=== PATIENT | male | born 1935 | race Caucasian/White ===

== ENCOUNTER → 2016-12-22 | Outpatient (CLI) | payer BC ==
[~2016-12-22] MED LIST: ASPEC81 PO; ATOR-24 PO; CHOLCAP5 PO; LEVO25TA PO; METO-478 PO; NTRGSL/4 UT; PRT/20 PO; XNX25 PO
[2016-12-22 12:06] LABS: HEMATOCRIT 37.5 % (42-52); MEAN CELL VOLUME 86.4 fL (80-100); MEAN CORPUSCULAR HEMOGLOBIN 29.7 pg (25-34); MEAN CORPUSCULAR HGB CONC 34.4 g/dl (32-36); MEAN PLATELET VOLUME 11.2 fL (7.4-10.4); PLATELET COUNT 178 K/uL (130-400); RED BLOOD COUNT 4.34 M/uL (4.7-6.1); WHITE BLOOD COUNT 7.76 K/uL (4.8-10.8)
[2016-12-22 14:28] LABS: ALT/SGPT 29 U/L (12-78); AST/SGOT 29 U/L (15-37); BLOOD UREA NITROGEN 20 mg/dl (7-18); BUN/CREATININE RATIO 14.2 (10-20); CALCIUM 8.8 mg/dl (8.5-10.1); CARBON DIOXIDE 29 mmol/L (21-32); CHLORIDE 102 mmol/L (98-107); GLUCOSE 87 mg/dl (70-99); HDL CHOLESTEROL 63 mg/dl; POTASSIUM 4.4 mmol/L (3.5-5.1); SODIUM 137 mmol/L (136-145)
[2016-12-22 14:39] LABS: ALB/GLOB RATIO 1.3 (0.9-2); ALKALINE PHOSPHATASE 49 U/L (45-117); CHOLESTEROL 195 mg/dl (0-200); CHOLESTEROL/HDL RATIO 3.1; LDL CHOLESTEROL CALCULATED 111 mg/dl; TRIGLYCERIDES 105 mg/dl (0-150); VERY LOW DENSITY LIPOPROT CALC 21 mg/dl
== END | disposition home or self-care (01) ==
LOC: C.LAB 10:54
PROVIDERS: ATTEND Physician Assistant
DX: R42 Dizziness and giddiness (principal); R53.82 Chronic fatigue, unspecified; E78.5 Hyperlipidemia, unspecified

== ENCOUNTER → 2017-12-24 | Outpatient (CLI) | payer BC ==
[2017-12-24 12:16] LABS: BASO % 0.5 %; BASO ABS # 0.03 K/uL (0-0.2); EOS % 8.3 %; EOS ABS # 0.54 K/uL (0-0.5); HEMATOCRIT 38.5 % (42-52); HEMOGLOBIN 13.1 g/dL (14.0-18.0); IG# 0.01 K/uL (0.00-0.02); LYMPH % 19.4 %; LYMPH ABS # 1.27 K/uL (1.2-3.4); MEAN CELL VOLUME 86.5 fL (80-100); MEAN CORPUSCULAR HEMOGLOBIN 29.4 pg (25-34); MEAN PLATELET VOLUME 11.3 fL (7.4-10.4); MONO % 6.1 %; NEUT % 65.5 %; NEUT ABS # 4.29 K/uL (1.4-6.5); PLATELET COUNT 198 K/uL (130-400); RED CELL DISTRIBUTION WIDTH SD 44.1 fL (36.4-46.3); WHITE BLOOD COUNT 6.54 K/uL (4.8-10.8)
[2017-12-24 12:48] LABS: ALBUMIN 3.8 gm/dl (3.4-5.0); ALT/SGPT 27 U/L (12-78); AST/SGOT 30 U/L (15-37); BLOOD UREA NITROGEN 22 mg/dl (7-18); CALCIUM 8.9 mg/dl (8.5-10.1); CARBON DIOXIDE 29 mmol/L (21-32); CREATININE 1.41 mg/dl (0.60-1.40); GLUCOSE 89 mg/dl (70-99); POTASSIUM 4.3 mmol/L (3.5-5.1); SODIUM 135 mmol/L (136-145)
[2017-12-24 12:59] LABS: ALKALINE PHOSPHATASE 45 U/L (45-117); CHOLESTEROL 199 mg/dl (0-200); LDL CHOLESTEROL CALCULATED 119 mg/dl; TOTAL PROTEIN 6.8 gm/dl (6.4-8.2)
== END | disposition home or self-care (01) ==
LOC: C.LAB 10:23
PROVIDERS: ATTEND Family Medicine
DX: I25.10 Atherosclerotic heart disease of native coronary artery without angina pectoris (principal); F41.9 Anxiety disorder, unspecified

== ENCOUNTER 2022-06-27 14:10 | Inpatient (IN) ==
[2022-06-27] MEDS ORDERED: SODIUM CHLORIDE 0.9% 1000ML 500 ML IV ONE ×2 (14:36→15:57)
[2022-06-27] MEDS ORDERED: ONDANSETRON INJ 2 MG/ML 2 ML VIAL IV STA (14:36)
[2022-06-27 14:44] LABS: Basophils # (auto) 0.01 K/uL (0-0.2); Basophils % (auto) 0.1 %; Eosinophils # (auto) 0.04 K/uL (0-0.50); Eosinophils % (auto) 0.4 %; Hematocrit (blood only) 32.8 % (40.1-51.0); Hemoglobin 11.9 g/dl (14.0-18.0); Immature Granulocytes # (auto) 0.06 K/uL (0.00-0.02); Immature Granulocytes % (auto) 0.6 %; Lymphocytes # (auto) 0.67 K/uL (1.2-3.4); Lymphocytes % (auto) 7.2 %; Mean Corpuscular Hemoglobin 29.5 pg (25.0-34.0); Mean Corpuscular Hgb Conc 36.3 g/dL (32.0-36.0); Mean Corpuscular Volume 81.4 fL (80.0-100.0); Mean Platelet Volume 9.9 fL (9.4-12.4); Monocytes # (auto) 0.49 K/uL (0.24-0.82); Monocytes % (auto) 5.3 %; Neutrophils # (auto) 7.99 K/uL (1.4-6.5); Neutrophils % (auto) 86.4 %; Platelet Count 205 K/uL (130-400); RDW Coefficient of Variation 12.8 % (11.5-14.5); RDW Standard Deviation 38.2 fL (36.4-46.3); Red Blood Count 4.03 M/uL (4.63-6.08); White Blood Count 9.26 K/ul (4.8-10.8)
[2022-06-27] MEDS ORDERED: ALBUT/IPRATROP 3MG/0.5MG NEB 3 ML VIAL NEB STA (14:50)
--- NOTE | 2022-06-27 14:59 | XRay Report ---
TWO VIEW CHEST CLINICAL HISTORY: Illness. Cough. Vomiting. FINDINGS: PA and lateral chest radiographs are compared to study dated 07/10/2015 and correlated with chest CT dated 07/28/2013. The heart is top normal for projection noting atherosclerotic calcificatio n of the thoracic aorta. Chronic interstitial thickening is similar to previous. There is bibasilar s carring/atelectasis. No airspace consolidation or pleural effusion is identified. There is no pneumot horax. The skeletal structures are osteopenic. The bony thorax appears intact. Spondylotic change is noted in the thoracic spine. IMPRESSION: No active disease in the chest. ACT 112: Negative or not required by law. Electronically signed by: Bandar Boss M.D. 06/27/2022 2:58 PM
--- NOTE | 2022-06-27 15:00 | Emergency Department Note ---
Impression & Plan Weakness, Cough, Acute dehydration, Acute hyponatremia ED Provider Note NAME: ELIJAH LOMAX AGE: 86 SEX: M : 1935 ARRIVES VIA: Walk-In INFORMANT: [Patient][family] ED PROVIDER(S): [Bandar Arevalo MD] CHIEF COMPLAINT: Dehydration HISTORY OF PRESENT ILLNESS: The patient is an 86-year-old male who presents with 5 days of illness. He has had a decreased appetite, some cough and congestion. He has been fatigued. There was some mild confusion at times. Yesterday, he began vomiting. He feels thirsty and tired. He did see his doctors office, he was referred to the ER for evaluation as there were concerns for dehydration. Patient states that he is coughing to the point where he cannot sleep. He denies any fever, no diarrhea, no abdominal pain. He has not had any sick contacts. No underlying lung disease diagnosed. REVIEW OF SYSTEMS: See HPI for pertinent positives and negatives. A total of ten systems were reviewed and were otherwise negative. PMHx/PSHx: See Below SOCIAL HISTORY: See Below. PHYSICAL EXAM: GENERAL: Patient is in no acute distress. HEENT: No acute trauma, normocephalic atraumatic, mucous membranes very dry, no nasal congestion, no scleral icterus. NECK: No stridor, no adenopathy, no meningismus, trachea is midline. LUNGS: A few scattered wheezes heard, breath sounds equal, no respiratory distress. HEART: Without murmurs gallops or rubs, regular rate and rhythm. ABDOMEN: Soft, nontender, bowel sounds positive, no peritonitis. EXTREMITIES: No cyanosis or edema, full range of motion of all the joints without pain or difficulty, no signs for acute trauma. NEUROLOGIC: Oriented x 3, no acute motor or sensory deficits, no focal weakness. SKIN: No rash, no jaundice, no diaphoresis. DIFFERENTIAL DIAGNOSIS: Infection, dehydration, COVID-19, influenza, bronchitis, pneumonia, metabolic a bnormality, hypo/hyperglycemia, electrolyte disturbance, anemia, hypoxia, cardiac sources, intracerebral event, toxicologic issues, stroke, TIA, as well as other pathologies. EMERGENCY DEPARTMENT COURSE/PROCEDURES: ECG: Indication was weakness. The ECG shows a sinus rhythm with a first- degree AV block. The rate is 69. There is a right bundle branch block. There is no ST elevation, no PVCs. Compared to an ECG from 10 July 2015, the right bundle branch block is now present. Continuous Cardiac Monitoring: An order was placed for continuous cardiac monitoring. The monitor shows a rate of 70 with sinus rhythm with a first-degree block. MEDICAL DECISION MAKING: There is no leukocytosis. There is a mild anemia noted, this has been documented before. There was a normal platelet count. Sodium was quite low at 117. Chloride was low. No renal failure. Some subtle liver enzyme elevations were seen. ECG showed a sinus rhythm with a first-degree AV block, no acute ischemia. Cardiac enzyme testing x1 was not consistent with acute cardiac injury. Urinalysis showed ketones consistent with dehydration, no infection. COVID, influenza and RSV testing returned negative. Chest x-ray did not show heart failure or pneumonia. On exam, the patient appeared dehydrated. No hypoxia. Patient received IV saline, 1 L. He was given a DuoNeb. He was given IV Zofran. The patient is in need of a hospital stay. He has a cough and likely some sort of viral respiratory process. He is dehydrated with hyponatremia. I did speak with the patient and case management, the on-call hospitalist was consulted. Past Med/Surg History Medical History Acute kidney injury CAD (coronary artery disease) CKD (chronic kidney disease), stage III HLD (hyperlipidemia) Hypothyroidism Vitamin D deficiency Surgical History (Updated 06/27/22 @ 17:22 by Madisyn Cuellar PA-C) Hx of arthroscopic knee surgery Hx of colonoscopy 11/23/2014 Hx of tonsillectomy Family History (Updated 06/27/22 @ 17:23 by Madisyn Cuellar PA-C) Father , At age 63 No problems noted. Mother , At age 84 No problems noted. Brother No problems noted. Brother No problems noted. 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 Beliefs That Will Affect Care: None Current Living Situation: Spouse Other Information That Helps Us Care for You: No Feels Safe at Home: Yes Safety Concerns: Feels Safe At This Time Assistive Devices: Cane and Glasses Allergies Allergies Allergy/AdvReac Type Severity Reaction Status Date / Time Sulfa (Sulfonamide Allergy Unknown Unknown Verified 06/27/22 16:19 Antibiotics) Home Meds Home Medications Medication Instructions Recorded Confirmed aspirin 81 mg tablet,delayed 81 mg PO DAILY 06/27/22 06/27/22 release clotrimazole-betamethasone 1 1 applic topical BID PRN SORE ON 06/27/22 06/27/22 %-0.05 % topical cream TOE NEEDED ezetimibe 10 mg tablet (Zetia) 10 mg PO DAILY 06/27/22 06/27/22 levothyroxine 50 mcg tablet 50 mcg PO DAILYBB 06/27/22 06/27/22 nitroglycerin 0.4 mg sublingual 0.4 mg sublingual DIRECTED PRN 06/27/2206/08 tablet (Nitrostat) Chest Pain pantoprazole 20 mg tablet,delayed 20 mg PO DAILY 06/27/22 06/27/22 release polyethylene glycol 3350 17 17 g PO DAILY PRN Constipation 06/27/22 06/27/22 gram/dose oral powder (Miralax) rosuvastatin 5 mg tablet 5 mg PO 3XWK 06/27/22 06/27/22 Results & Data (ED) Vital Signs Vital Signs - 24 hr 06/27/22 14:19 06/27/22 16:00 Temperature 36.4 C L Temperature Source Temporal Artery Scan Pulse Rate 70 Pulse Rate [Radial] 85 Pulse Rhythm [Radial] Regular Respiratory Rate 20 18 Respiratory Effort / Characteristics Non-Labored Spontaneous Non-Labored Respiratory Depth Normal Normal Respiratory Pattern Regular Regular Blood Pressure 150/70 H Blood Pressure [Right Arm] 137/74 Blood Pressure Mean 96 Blood Pressure Mean [Right Arm] 95 Pulse Oximetry 95 93 Oxygen Delivery Method Room Air Room Air Sepsis Recent Fever Within 48 Hours No Sepsis New/Unexplained Change in Mental Status No Sepsis Action Taken by Nursing No Action Required Home Medications Current Medication List: was personally reviewed by me Laboratory Data Attestation: I reviewed the patient's lab results. Result diagrams: 06/27/22 14:32 06/27/22 19:39 Lab Results 06/27/22 06/27/22 06/27/22 Range/Units 14:32 14:32 14:32 WBC 9.26 (4.8-10.8) K/ul RBC 4.03 L (4.63-6.08) M/uL Hgb 11.9 L (14.0-18.0) g/dl Hct 32.8 L (40.1-51.0) % MCV 81.4 (80.0-100.0) fL MCH 29.5 (25.0-34.0) pg MCHC 36.3 H (32.0-36.0) g/dL RDW Std Deviation 38.2 (36.4-46.3) fL RDW Coeff of Dc 12.8 (11.5-14.5) % Plt Count 205 (130-400) K/uL MPV 9.9 (9.4-12.4) fL Immature Gran % (Auto) 0.6 % Neut % (Auto) 86.4 % Lymph % (Auto) 7.2 % Menard % (Auto) 5.3 % Eos % (Auto) 0.4 % Baso % (Auto) 0.1 % Neut # (Auto) 7.99 H (1.4-6.5) K/uL Lymph # (Auto) 0.67 L (1.2-3.4) K/uL Menard # (Auto) 0.49 (0.24-0.82) K/uL Eos # (Auto) 0.04 (0-0.50) K/uL Baso # (Auto) 0.01 (0-0.2) K/uL Immature Gran # (Auto) 0.06 H (0.00-0.02) K/uL Sodium 117 L* (136-145) mmol/L Potassium 4.2 (3.5-5.1) mmol/L Chloride 83 L (98-107) mmol/L Carbon Dioxide 24 (21-32) mmol/L Anion Gap 10 (3-11) BUN 16 (6-23) mg/dl Creatinine 0.89 (0.6-1.4) mg/dl Est Cr Clr Drug Dosing 62.9 ml/min Est GFR ( Amer) 91.0 ml/min Est GFR (Non-Af Amer) 78.5 ml/min BUN/Creatinine Ratio 18.0 (10-20) Glucose 113 H (70-99(Fasting)) mg/dl Osmolality 247 L (280-300) mOsm/kg Calcium 8.8 (8.5-10.1) mg/dl Magnesium 1.9 (1.7-2.4) mg/dl Total Bilirubin 1.1 H (0.2-1.0) mg/dl AST 66 H (13-39) U/L ALT 34 (7-52) U/L Alkaline Phosphatase 49 (34-104) U/L Troponin I High Sens 8.4 (0-20) pg/ml Total Protein 6.9 (6.0-8.3) gm/dl Albumin 4.2 (3.4-5.0) gm/dl Globulin 2.7 (2.5-4.0) gm/dl Albumin/Globulin Ratio 1.6 (0.9-2) Urine Color Urine Appearance (Clear) Urine pH (4.5-7.5) Ur Specific [place] (1.000-1.030) Urine Protein (Negative) Urine Glucose (UA) (Negative) Urine Ketones (Negative) Urine Blood (Negative) Urine Nitrite (Negative) Urine Bilirubin (Negative) Urine Urobilinogen (Negative) Ur Leukocyte Esterase (Negative) Urine WBC (Auto) (0-5) /hpf Urine RBC (Auto) (0-4) /hpf U Hyaline Cast (Auto) (0-5) /lpf U Epithel Cells (Auto) (0-5) /lpf Urine Bacteria (Auto) (Negative) Urine Osmolality (500-800) mOsm/kg Ur Random Creatinine mg/dl Ur Random Sodium mmol/L SARS-CoV-2 (PCR) (Negative) Influenza Type A (PCR) (Neg) Influenza Type B (PCR) (Neg) RSV (RT-PCR) (Neg) 06/27/22 06/27/22 06/27/22 Range/Units 15:00 15:45 15:54 WBC (4.8-10.8) K/ul RBC (4.63-6.08) M/uL Hgb (14.0-18.0) g/dl Hct (40.1-51.0) % MCV (80.0-100.0) fL MCH (25.0-34.0) pg MCHC (32.0-36.0) g/dL RDW Std Deviation (36.4-46.3) fL RDW Coeff of Dc (11.5-14.5) % Plt Count (130-400) K/uL MPV (9.4-12.4) fL Immature Gran % (Auto) % Neut % (Auto) % Lymph % (Auto) % Menard % (Auto) % Eos % (Auto) % Baso % (Auto) % Neut # (Auto) (1.4-6.5) K/uL Lymph # (Auto) (1.2-3.4) K/uL Menard # (Auto) (0.24-0.82) K/uL Eos # (Auto) (0-0.50) K/uL Baso # (Auto) (0-0.2) K/uL Immature Gran # (Auto) (0.00-0.02) K/uL Sodium (136-145) mmol/L Potassium (3.5-5.1) mmol/L Chloride (98-107) mmol/L Carbon Dioxide (21-32) mmol/L Anion Gap (3-11) BUN (6-23) mg/dl Creatinine (0.6-1.4) mg/dl Est Cr Clr Drug Dosing ml/min Est GFR ( Amer) ml/min Est GFR (Non-Af Amer) ml/min BUN/Creatinine Ratio (10-20) Glucose (70-99(Fasting)) mg/dl Osmolality (280-300) mOsm/kg Calcium (8.5-10.1) mg/dl Magnesium (1.7-2.4) mg/dl Total Bilirubin (0.2-1.0) mg/dl AST (13-39) U/L ALT (7-52) U/L Alkaline Phosphatase (34-104) U/L Troponin I High Sens (0-20) pg/ml Total Protein (6.0-8.3) gm/dl Albumin (3.4-5.0) gm/dl Globulin (2.5-4.0) gm/dl Albumin/Globulin Ratio (0.9-2) Urine Color Yellow Urine Appearance Clear (Clear) Urine pH 6.5 (4.5-7.5) Ur Specific [place] 1.021 (1.000-1.030) Urine Protein 1+ H (Negative) Urine Glucose (UA) Negative (Negative) Urine Ketones 2+ H (Negative) Urine Blood Negative (Negative) Urine Nitrite Negative (Negative) Urine Bilirubin Negative (Negative) Urine Urobilinogen Negative (Negative) Ur Leukocyte Esterase Negative (Negative) Urine WBC (Auto) 1-5 (0-5) /hpf Urine RBC (Auto) 0-4 (0-4) /hpf U Hyaline Cast (Auto) 0 (0-5) /lpf U Epithel Cells (Auto) 10-20 H (0-5) /lpf Urine Bacteria (Auto) Negative (Negative) Urine Osmolality 1069 H (500-800) mOsm/kg Ur Random Creatinine mg/dl Ur Random Sodium mmol/L SARS-CoV-2 (PCR) NEGATIVE (Negative) Influenza Type A (PCR) Negative (Neg) Influenza Type B (PCR) Negative (Neg) RSV (RT-PCR) Negative (Neg) 06/27/22 06/27/22 Range/Units 15:54 15:54 WBC (4.8-10.8) K/ul RBC (4.63-6.08) M/uL Hgb (14.0-18.0) g/dl Hct (40.1-51.0) % MCV (80.0-100.0) fL MCH (25.0-34.0) pg MCHC (32.0-36.0) g/dL RDW Std Deviation (36.4-46.3) fL RDW Coeff of Dc (11.5-14.5) % Plt Count (130-400) K/uL MPV (9.4-12.4) fL Immature Gran % (Auto) % Neut % (Auto) % Lymph % (Auto) % Menard % (Auto) % Eos % (Auto) % Baso % (Auto) % Neut # (Auto) (1.4-6.5) K/uL Lymph # (Auto) (1.2-3.4) K/uL [place]ard # (Auto) (0.24-0.82) K/uL Eos # (Auto) (0-0.50) K/uL Baso # (Auto) (0-0.2) K/uL Immature Gran # (Auto) (0.00-0.02) K/uL Sodium (136-145) mmol/L Potassium (3.5-5.1) mmol/L Chloride (98-107) mmol/L Carbon Dioxide (21-32) mmol/L Anion Gap (3-11) BUN (6-23) mg/dl Creatinine (0.6-1.4) mg/dl Est Cr Clr Drug Dosing ml/min Est GFR ( Amer) ml/min Est GFR (Non-Af Amer) ml/min BUN/Creatinine Ratio (10-20) Glucose (70-99(Fasting)) mg/dl Osmolality (280-300) mOsm/kg Calcium (8.5-10.1) mg/dl Magnesium (1.7-2.4) mg/dl Total Bilirubin (0.2-1.0) mg/dl AST (13-39) U/L ALT (7-52) U/L Alkaline Phosphatase (34-104) U/L Troponin I High Sens (0-20) pg/ml Total Protein (6.0-8.3) gm/dl Albumin (3.4-5.0) gm/dl Globulin (2.5-4.0) gm/dl Albumin/Globulin Ratio (0.9-2) Urine Color Urine Appearance (Clear) Urine pH (4.5-7.5) Ur Specific [place] (1.000-1.030) Urine Protein (Negative) Urine Glucose (UA) (Negative) Urine Ketones (Negative) Urine Blood (Negative) Urine Nitrite (Negative) Urine Bilirubin (Negative) Urine Urobilinogen (Negative) Ur Leukocyte Esterase (Negative) Urine WBC (Auto) (0-5) /hpf Urine RBC (Auto) (0-4) /hpf U Hyaline Cast (Auto) (0-5) /lpf U Epithel Cells (Auto) (0-5) /lpf Urine Bacteria (Auto) (Negative) Urine Osmolality (500-800) mOsm/kg Ur Random Creatinine 284.5 mg/dl Ur Random Sodium 214 mmol/L SARS-CoV-2 (PCR) (Negative) Influenza Type A (PCR) (Neg) Influenza Type B (PCR) (Neg) RSV (RT-PCR) (Neg) Administered Medications Guaifenesin (Guaifenesin 600 Mg Tabcr) 600 mg PO Q12 CLAUDIA Stop: 07/27/22 20:59 Last Admin: 06/27/22 20:35 Dose: 600 mg Documented By: HFS Sodium Chloride (Hypertonic Saline 3%) 150 mls @ 50 mls/hr IV .Q3H ONE; Protocol Stop: 06/27/22 22:44 Last Admin: 06/27/22 20:36 Dose: 50 mls/hr Documented By: DANIELLE Co-signed By: CF Discontinued Medications Albuterol (Albut/Ipratrop 3mg/0.5mg Neb 3 Ml Vial) 3 ml NEB NOW STA; Protocol Stop: 06/27/22 14:51 Last Admin: 06/27/22 15:06 Dose: 3 ml Documented By: PUMA Guaifenesin/Codeine Phosphate (Guaifenesin/Codeine 200mg/20mg 10ml Udc) 10 ml PO NOW STA Stop: 06/27/22 19:39 Last Admin: 06/27/22 20:37 Dose: 10 ml Documented By: DANIELLE Sodium Chloride (Nss 1000ml) 500 mls @ 999 mls/hr IV .Q31M ONE Stop: 06/27/22 15:06 Last Infusion: 06/27/22 15:49 Dose: 0 mls/hr Documented By: Admin: 06/27/22 15:06 Dose: 999 mls/hr Documented By: PUMA Sodium Chloride (Nss 1000ml) 500 mls @ 999 mls/hr IV .Q31M ONE Stop: 06/27/22 16:27 Last Infusion: 06/27/22 16:51 Dose: 0 mls/hr Documented By: Admin: 06/27/22 16:18 Dose: 999 mls/hr Documented By: PUMA Ondansetron HCl (Ondansetron Inj 2 Mg/Ml 2 Ml Vial) 4 mg IV NOW STA Stop: 06/27/22 14:37 Last Admin: 06/27/22 15:06 Dose: 4 mg Documented By: PUMA Imaging Data Radiologist's Impression: Chest X-Ray 06/27/22 14:25 TWO VIEW CHEST CLINICAL HISTORY: Illness. Cough. Vomiting. FINDINGS: PA and lateral chest radiographs are compared to study dated 07/10/2015 and correlated with chest CT dated 07/28/2013. The heart is top normal for projection noting atherosclerotic calcification of the thoracic aorta. Chronic interstitial thickening is similar to previous. There is bibasilar scarring/atelectasis. No airspace consolidation or pleural effusion is identified. There is no pneumothorax. The skeletal structures are osteopenic. The bony thorax appears intact. Spondylotic change is noted in the thoracic spine. IMPRESSION: No active disease in the chest. ACT 112: Negative or not required by law. Electronically signed by: Bandar Boss M.D. 06/27/2022 2:58 PM Discharge Plan Visit Data Chief Complaint: Dehydration Stated Complaint: REF BY DR, CONGESTION, COUGH, NAUSEA, VOMITING ED Provider: Bandar Arevalo Discharge Problem: Weakness, Cough, Acute dehydration, Acute hyponatremia Patient Disposition: Admitted As Inpatient Condition: Fair Discharge Instructions Interventions: ED Discharge Assessment Last Done: 06/27/22 17:55
[2022-06-27 15:25] LABS: Troponin I High Sensitivity 8.4 pg/ml (0-20)
[2022-06-27 15:55] LABS: Albumin Globulin Ratio 1.6 (0.9-2); Albumin Level 4.2 gm/dl (3.4-5.0); Bilirubin,Total 1.1 mg/dl (0.2-1.0); Calcium 8.8 mg/dl (8.5-10.1); Creatinine Clr Calc Pharmacy 62.9 ml/min; Est GFR (Non-African American) 78.5 ml/min; Globulin 2.7 gm/dl (2.5-4.0); Magnesium 1.9 mg/dl (1.7-2.4); Potassium 4.2 mmol/L (3.5-5.1); Total Protein 6.9 gm/dl (6.0-8.3)
[2022-06-27 16:01] LABS: Influenza A virus by PCR Negative (Neg); Influenza B virus by PCR Negative (Neg); RSV by PCR Negative (Neg); SARS CoV2 RNA(COVID-19) InHosp NEGATIVE (Negative)
[2022-06-27 16:03] LABS: Appearance Urine Clear (Clear); Bacteria Urine Automated Negative (Negative); Bilirubin Urine Negative (Negative); Blood Urine Negative (Negative); Cast Urine Automated 0 /lpf (0-5); Color Urine Yellow; Glucose Urine UA Negative (Negative); Ketones Urine 2+ (Negative); Leukocyte Esterase Urine Negative (Negative); Nitrite Urine Negative (Negative); Protein Urine 1+ (Negative); RBC Urine Automated 0-4 /hpf (0-4); Specific Gravity Urine 1.021 (1.000-1.030); Urobilinogen Urine Negative (Negative); pH Urine 6.5 (4.5-7.5)
--- NOTE | 2022-06-27 16:16 | History & Physical Report ---
Date of Service June 27, 2022 Assessment & Plan (1) Hyponatremia: Plan: - Admit to PCU -Severe hyponatremia, level 117, symptomatic with nausea, vomiting, lethargy, imbalance, generalized malaise -Consult nephrology -discussed with Dr. Isabel -Checking serum osmolality, urine osmolality, urine sodium and creatinine, urine Legionella with recent viral respiratory symptoms -Rechecking BMP now to ensure sodium of 117 is accurate, follow with BMP every 6 hours -Patient has received total NSS 1000 L in the ER, await repeat sodium to determine fluid adjustments, possible that may need 3% saline infusion with severe hyponatremia -Respiratory swab of COVID, influenza, RSV are negative (2) Upper respiratory infection, viral: Plan: - Continue supportive care of cough with Hycodan cough syrup - No leukocytosis - Neg covid, influenza and RSV, checking legionella urine - On room air with O2 sats at 93 %, no supplemental O2 use at baseline - Can consider addition of albuterol nebulizer if develops wheeze however does not have currently - Encourage incentive spirometry, flutter, mucinex (3) CAD (coronary artery disease): Plan: -May continue baby aspirin -Follows with [facility] cardiology, Dr. Bernal as an outpatient: Single-vessel coronary arthrosclerosis of the left circumflex by cardiac cath in 2013 -Hyperlipidemia with a poor statin intolerance on low-dose therapy, can continue - EKG reviewed, RBBB noted, old, no cardiac symptoms today upon admission (4) HLD (hyperlipidemia): Plan: -Continue rosuvastatin 5 mg 3 times/wk (5) CKD (chronic kidney disease), stage III: Plan: -History of such, creatinine function/BUN stable today -Trend as above (6) Hypothyroidism: Plan: -Continue levothyroxine 50 mcg daily -Last TSH was 7.90 Free T4 1.0, PCP last note from 06/12 noted to stay on the same dose and encouraged patient to take daily, question noncompliance? Addressed prior to discharge DVT PPx: - teds, scds CODE: Full code Dispo: From home, likely to remain in the hospital x 1-2 days History of Present Illness Chief Complaint: Dehydration Primary Care Provider: Chester Persaud, DO This is a 86-year-old M with PMHx of CKD stage III, HLD, hypothyroidism, who presented to the ER with acute onset of nausea, vomiting, lethargy, dizziness, fatigue. He was recently being treated as an outpatient for a viral upper respiratory illness for the past 4 to 5 days, with acute worsening of cough, nausea, and vomiting and due to dehydration his and daughter brought him to see PCP today. They referred him to the ER because of dehydration. Recently he had outpatient blood work completed which showed sodium of 134 on 06/09/22. In the ER upon admission sodium level is 117. He has not had any seizures or displaying other neurological manifestations at this time per the daughter, Radha who is present at bedside. Pt reports that in general he does not feel himself, and is tired. Patient also complains of having difficulty walking because he feels unbalanced. Typically he does not have any issues with this nor uses any assistive devices for ambulation. He denies any recent falls. One of his biggest complaints is that he has not had any rest or sleep for the past 2 nights due to cough. When questioned about outpatient Remeron, he tells me he has not needed a sleeping agent in months and is no longer taking this. He reports that his coughing has overall been dry, but today started bringing up mucus after having a nebulizer treatment in the ER. He is able to participate in conversation, oriented x3, and answer all my questions without difficulty. Patient was unable to take his medications this morning due to nausea/vomiting. Respiratory swab was COVID, influenza, RSV negative. Allergies Allergy/AdvReac Type Severity Reaction Status Date / Time Sulfa (Sulfonamide Allergy Unknown Unknown Verified 06/27/22 16:19 Antibiotics) Home Medications Medication Instructions Recorded Confirmed Type aspirin 81 mg tablet,delayed 81 mg PO DAILY 06/27/22 06/27/22 History release clotrimazole-betamethasone 1 1 applic topical BID PRN SORE ON 06/27/22 06/27/22 History %-0.05 % topical cream TOE NEEDED ezetimibe 10 mg tablet (Zetia) 10 mg PO DAILY 06/27/22 06/27/22 History levothyroxine 50 mcg tablet 50 mcg PO DAILYBB 06/27/22 06/27/22 History nitroglycerin 0.4 mg sublingual 0.4 mg sublingual DIRECTED PRN 06/27/22 06/27/22 History tablet (Nitrostat) Chest Pain pantoprazole 20 mg tablet,delayed 20 mg PO DAILY 06/27/22 06/27/22 History release polyethylene glycol 3350 17 17 g PO DAILY PRN Constipation 06/27/22 06/27/22 History gram/dose oral powder (Miralax) rosuvastatin 5 mg tablet 5 mg PO 3XWK 06/27/22 06/27/22 History Past Med/Surg History Medical History (Updated 06/27/22 @ 17:39 by Madisyn Cuellar PA-C) Acute kidney injury CAD (coronary artery disease) CKD (chronic kidney disease), stage III HLD (hyperlipidemia) Hypothyroidism Vitamin D deficiency Surgical History (Updated 06/27/22 @ 17:22 by Madisyn Cuellar PA-C) Hx of arthroscopic knee surgery Hx of colonoscopy 11/23/2014 Hx of tonsillectomy Family History (Updated 06/27/22 @ 17:23 by Madisyn Cuellar PA-C) Father , At age 63 No problems noted. Mother , At age 84 No problems noted. Brother No problems noted. Brother No problems noted. Social History Smoking Status: Never smoker Hx Alcohol Use: Yes Alcohol type: beer Hx Substance Use: No Preferred Language: Hungarian Communication Ability: Effective Manpower Development Advisor Required: No Beliefs That Will Affect Care: None Current Living Situation: Spouse Other Information That Helps Us Care for You: No Feels Safe at Home: Yes Safety Concerns: Feels Safe At This Time Assistive Devices: Cane and Glasses Review of Systems Review of Systems: Constitutional: No fever, sweats or chills, + fatigue, + lethargy Eyes: No diplopia, no worsening or blurred vision ENT: normal hearing, no trouble swallowing Respiratory: + Recent dry cough, today with new sputum production, no blood, no dyspnea at rest or on exertion Cardiovascular: No chest pain, tightness or palpitations Abdomen: No pain, nausea, vomiting, diarrhea or constipation Musculoskeletal: No joint pain, calf pain, swelling Neurologic: + generalized weakness and balance problems, no numbness and tingling Psychiatric: No anxiety or depression Skin: No rash or itch Physical Exam Physical Exam: General: awake, alert, no apparent distress, + appears fatigued Head: Normocephalic, atraumatic ENT: PERRL, EOMI, no pharyngeal exudate,+ mucous membranes are dry Chest: On room air, + cough which clears airways to resolve rales, no wheeze, no crackles or other adventitious breath sounds Cardiac: Regular rate and rhythm, no murmur, no JVD, normal peripheral pulses, good capillary refill Abdominal: NABS x 4 quadrants, soft, nondistended, nontender to palpation, no rebound or guarding Extremities: Normal inspection, no peripheral edema or erythema, calfs nontender to palpation Psych: Normal mood and affect Neuro: AAO x 3, participates in conversation without difficulty, answers questions appropriately, strength intact bilaterally and rated 5/5, no motor deficits, speech is clear, no peripheral sensory deficits Results & Data Results & Data ([facility]) Vital Signs (Past 12 Hours) Vital Signs Temp Pulse Pulse Resp BP BP Pulse Ox 06/27/22 16:00 85 18 137/74 93 06/27/22 14:19 36.4 C L 70 20 150/70 H 95 O2 Del Method 06/27/22 16:00 Room Air 06/27/22 14:19 Room Air Laboratory Results 06/27/22 06/27/22 06/27/22 15:45 15:00 14:32 WBC RBC Hgb Hct MCV MCH MCHC RDW Std Deviation RDW Coeff of Dc Plt Count MPV Immature Gran % (Auto) Neut % (Auto) Lymph % (Auto) [place] % (Auto) Eos % (Auto) Baso % (Auto) Neut # (Auto) Lymph # (Auto) [place] # (Auto) Eos # (Auto) Baso # (Auto) Immature Gran # (Auto) Sodium 117 L* Potassium 4.2 Chloride 83 L Carbon Dioxide 24 Anion Gap 10 BUN 16 Creatinine 0.89 Est Cr Clr Drug Dosing 62.9 Est GFR ( Amer) 91.0 Est GFR (Non-Af Amer) 78.5 BUN/Creatinine Ratio 18.0 Glucose 113 H Calcium 8.8 Magnesium 1.9 Total Bilirubin 1.1 H AST 66 H ALT 34 Alkaline Phosphatase 49 Troponin I High Sens 8.4 Total Protein 6.9 Albumin 4.2 Globulin 2.7 Albumin/Globulin Ratio 1.6 Urine Color Yellow Urine Appearance Clear Urine pH 6.5 Ur Specific [place] 1.021 Urine Protein 1+ H Urine Glucose (UA) Negative Urine Ketones 2+ H Urine Blood Negative Urine Nitrite Negative Urine Bilirubin Negative Urine Urobilinogen Negative Ur Leukocyte Esterase Negative Urine WBC (Auto) 1-5 Urine RBC (Auto) 0-4 U Hyaline Cast (Auto) 0 U Epithel Cells (Auto) 10-20 H Urine Bacteria (Auto) Negative SARS-CoV-2 (PCR) NEGATIVE Influenza Type A (PCR) Negative Influenza Type B (PCR) Negative RSV (RT-PCR) Negative 06/27/22 14:32 WBC 9.26 RBC 4.03 L Hgb 11.9 L Hct 32.8 L MCV 81.4 MCH 29.5 MCHC 36.3 H RDW Std Deviation 38.2 RDW Coeff of Dc 12.8 Plt Count 205 MPV 9.9 Immature Gran % (Auto) 0.6 Neut % (Auto) 86.4 Lymph % (Auto) 7.2 [place] % (Auto) 5.3 Eos % (Auto) 0.4 Baso % (Auto) 0.1 Neut # (Auto) 7.99 H Lymph # (Auto) 0.67 L [place] # (Auto) 0.49 Eos # (Auto) 0.04 Baso # (Auto) 0.01 Immature Gran # (Auto) 0.06 H Sodium Potassium Chloride Carbon Dioxide Anion Gap BUN Creatinine Est Cr Clr Drug Dosing Est GFR ( Amer) Est GFR (Non-Af Amer) BUN/Creatinine Ratio Glucose Calcium Magnesium Total Bilirubin AST ALT Alkaline Phosphatase Troponin I High Sens Total Protein Albumin Globulin Albumin/Globulin Ratio Urine Color Urine Appearance Urine pH Ur Specific [place] Urine Protein Urine Glucose (UA) Urine Ketones Urine Blood Urine Nitrite Urine Bilirubin Urine Urobilinogen Ur Leukocyte Esterase Urine WBC (Auto) Urine RBC (Auto) U Hyaline Cast (Auto) U Epithel Cells (Auto) Urine Bacteria (Auto) SARS-CoV-2 (PCR) Influenza Type A (PCR) Influenza Type B (PCR) RSV (RT-PCR) Diagnostic Findings Chest X-Ray 06/27/22 14:25 TWO VIEW CHEST CLINICAL HISTORY: Illness. Cough. Vomiting. FINDINGS: PA and lateral chest radiographs are compared to study dated 07/10/2015 and correlated with chest CT dated 07/28/2013. The heart is top normal for projection noting atherosclerotic calcification of the thoracic aorta. Chronic interstitial thickening is similar to previous. There is bibasilar scarring/atelectasis. No airspace consolidation or pleural effusion is identified. There is no pneumothorax. The skeletal structures are osteopenic. The bony thorax appears intact. Spondylotic change is noted in the thoracic spine. IMPRESSION: No active disease in the chest. ACT 112: Negative or not required by law. Electronically signed by: Bandar Boss M.D. 06/27/2022 2:58 PM Code Status & VTE Plan Code Status Full code - discussed with patient and daughter, Radha at bedside Supervising Physician Co-Signing Physician Notes Patient is an 86-year-old man with recent respiratory illness that has resulted in worsened cough and posttussive vomiting with persistent nausea and severe dehydration. He is also reporting significant leg cramps. He has been admitted for sodium of 119 with a normal baseline. He reports symptomatic malaise and persistent nausea this evening. He was given approximately 1 L of normal saline in the ER and his repeat sodium is 117 a few hours later. On physical exam he is ill-appearing but in no acute distress. Cardiac exam is normal but with distant S1/2 heard. Lungs are clear to auscultation throughout. Sitting up in bed make him need to cough. Abdomen is soft, NTND. Normal strength throughout. Neurologically intact and oriented. Workup reveals hypotonic hypovolemic hyponatremia. There is no leukocytosis and CXR is clear. After receiving 1L of NSS in the ER, his Na was rechecked and remained 117. As he was having symptomatic hyponatremia, hypertonic saline was started at 50cc/hr x 3 hrs. This was discussed with front office developer nephrology and signed out to the library customer service clerk. Hypertonic saline arrived later to the floor and discussed the lab retiming for overnight. Class C Truck Driver also aware of the change. Cont q6hr Na checks and cont telemetry. Na should not rise higher than 125 by tomorrow afternoon (8 points in 24 hours). The cause of his symptomatic hyponatremia is likely multifactorial with ongoing dehydration from his URI, persistent nausea, coughing and insomnia for the past two nights, and poor oral intake/low appetite. Cont with this treatment overnight and supportive care. Plan was discussed with the daughter and patient at bedside who verbalized understanding. All questions were answered to their satisfaction. DO Gorge
[2022-06-27] MEDS ORDERED: POLYETHYLENE (MIRALAX) 17 GM PACK PO PRN (18:25)
[2022-06-27] MEDS ORDERED: ACETAMINOPHEN 325 MG TAB PO PRN (18:25)
[2022-06-27] MEDS ORDERED: HYDROcodone/HOMATROPINE SYRUP 5MG/1.5MG 5ML UDP PO PRN (18:25)
[2022-06-27 18:35] LABS: BUN Creatinine Ratio 17.9 (10-20); Creatinine Clr Calc Pharmacy 66.7 ml/min; Est GFR (African American) 93.2 ml/min; Est GFR (Non-African American) 80.4 ml/min
[2022-06-27] MEDS ORDERED: STAT IV STA (19:32)
[2022-06-27] MEDS ORDERED: SODIUM CHLORIDE 3 % 150 ML IV ONE (19:45)
[2022-06-27] MEDS: guaiFENesin 600 MG TABCR PO SCH (20:35)
[2022-06-27 20:49] LABS: BUN Creatinine Ratio 16.5 (10-20); Calcium 8.2 mg/dl (8.5-10.1); Creatinine Clr Calc Pharmacy 68.9 ml/min; Est GFR (African American) 92.7 ml/min
[2022-06-27] MEDS ORDERED: guaiFENesin 600 MG TABCR PO SCH (21:00)
[2022-06-27 23:56] LABS: BUN Creatinine Ratio 15.4 (10-20); Calcium 8.2 mg/dl (8.5-10.1); Creatinine Clr Calc Pharmacy 64.4 ml/min; Est GFR (African American) 89.4 ml/min; Est GFR (Non-African American) 77.1 ml/min
[2022-06-28 04:15] LABS: Hematocrit (blood only) 30.3 % (40.1-51.0); Hemoglobin 11.2 g/dl (14.0-18.0); Mean Corpuscular Hemoglobin 29.9 pg (25.0-34.0); Mean Platelet Volume 9.8 fL (9.4-12.4); Platelet Count 179 K/uL (130-400); RDW Coefficient of Variation 12.7 % (11.5-14.5); RDW Standard Deviation 37.6 fL (36.4-46.3); Red Blood Count 3.74 M/uL (4.63-6.08)
[2022-06-28] MEDS: LEVOTHYROXINE SODIUM 50 MCG TABLET PO SCH (04:36)
[2022-06-28 04:41] LABS: BUN Creatinine Ratio 13.5 (10-20); Calcium 8.2 mg/dl (8.5-10.1); Creatinine Clr Calc Pharmacy 65.8 ml/min; Est GFR (Non-African American) 78.5 ml/min; Magnesium 1.9 mg/dl (1.7-2.4); Potassium 3.9 mmol/L (3.5-5.1)
--- NOTE | 2022-06-28 07:12 | Electrocardiogram Report ---
Test Reason : Blood Pressure : / mmHG Vent. Rate : 069 BPM Atrial Rate : 069 BPM P-R Int : 226 ms QRS Dur : 142 ms QT Int : 466 ms P-R-T Axes : 082 083 076 degrees QTc Int : 499 ms Sinus rhythm with 1st degree A-V block Right bundle branch block Abnormal ECG When compared with ECG of 10-JUL-2015 18:06, MA interval has increased Right bundle branch block is now Present Confirmed by Karan Dave ([id number]) on 06/28/2022 7:11:48 AM Referred By: Nani Rivera Confirmed By:Steve Dave
[2022-06-28] MEDS: ASPIRIN 81 MG ECTAB PO SCH (09:24)
[2022-06-28] MEDS: PANTOprazole 40 MG TAB PO SCH (09:24)
[2022-06-28] MEDS: guaiFENesin 600 MG TABCR PO SCH ×2 (09:24→20:21)
[2022-06-28] MEDS: EZETIMIBE 10 MG TABLET PO SCH (09:24)
[2022-06-28] MEDS: ONDANSETRON INJ 2 MG/ML 2 ML VIAL IV PRN (09:28)
[2022-06-28 10:49] LABS: BUN Creatinine Ratio 13.8 (10-20); Calcium 8.1 mg/dl (8.5-10.1); Creatinine Clr Calc Pharmacy 64.8 ml/min; Est GFR (African American) 91.9 ml/min; Est GFR (Non-African American) 79.3 ml/min; Potassium 3.9 mmol/L (3.5-5.1)
[2022-06-28] MEDS ORDERED: SODIUM CHLORIDE 0.9% 1000ML 2,000 ML IV SCH (12:30)
--- NOTE | 2022-06-28 13:27 | Consultation Report ---
NEPHROLOGY CONSULTATION NOTE DATE OF SERVICE: 06/28/2022 REASON FOR CONSULTATION: Hyponatremia. HISTORY OF PRESENT ILLNESS: The patient is an 86-year-old male with history of chronic kidney disease stage III, hyperlipidemia, hypothyroidism, who presented to the Emergency Department with acute onset of nausea, vomiting, lethargy, dizziness, fatigue. He was being treated as an outpatient for upper respiratory tract illness for the last few days. He was having significant cough, mostly dry with nausea, poor appetite and few episodes of vomiting. He was seen by the PCP yesterday. PCP's office felt the patient was severely dehydrated and was sent over to the hospital. He had outpatient blood work done recently on 06/09/2022 which showed a sodium of 134. The patient is not aware of any episodes in the past with severe hyponatremia. In the Emergency Department, upon admission, sodium level was found to be 117. The patient was having significant cramp. The patient did receive hypertonic saline about 150 mL, which has since then raised the serum sodium to 120 most recently. He has not had any seizures or any other neurological manifestations. His overall health has been declining and he has been losing weight and muscle mass slowly over the last few months. His son-in-law who is a physical therapist was at the bedside and filled in with lot of details. The patient's respiratory swab was negative for COVID, influenza, as well as RSV. ALLERGIES: SULFA ANTIBIOTICS. HOME MEDICATIONS: Home medication was reviewed and he is not on any diuretics or any medication known to cause hyponatremia. PAST MEDICAL/SURGICAL HISTORY: Includes chronic kidney disease stage III, coronary artery disease, hyperlipidemia, hypothyroidism, vitamin D deficiency, arthroscopic knee surgery, colonoscopy, tonsillectomy. FAMILY HISTORY: Negative for renal disease or dialysis. SOCIAL HISTORY: Never smoked. No alcohol. , lives with his spouse. REVIEW OF SYSTEMS: Positive for nausea, few episodes of vomiting, poor appetite, lot of cough predominantly dry, increasing weakness, muscle cramps for the last few days to few weeks. Otherwise, other systems are negative. Total of 12 systems reviewed. PHYSICAL EXAMINATION: GENERAL: Elderly white male who is not in any overt respiratory distress. VITAL SIGNS: Blood pressure 131/76, pulse rate 70, temperature 36.6, 91% on room air. HEENT: Mucous membrane is dry. NECK: Supple. No jugular venous distention. CHEST: Bilateral decreased breath sounds, occasional crackles, but overall unremarkable. CARDIOVASCULAR: S1 and S2, regular. ABDOMEN: Soft, nontender. EXTREMITIES: Shows no edema. NEUROLOGICALLY: Awake, alert, oriented x3, normal speech. Moving all 4 extremities. LABORATORY AND IMAGING: Chest x-ray, no active disease in the chest. WBC count 10,000; hemoglobin 11.2; platelet count 179. Sodium was 117 on admission, most recent one is 120, about 2 hours ago at 10 a.m., so in about 18 hours patient's sodium has gone up by 3. BUN is 12, creatinine 0.87, calcium 8.1, magnesium 1.9. Urine osmolarity extremely high at 1069. Urine sodium 214. Urine ketone 2+. Urine blood negative. Urine legionella test pending. SARS COVID, influenza, RSV negative. ASSESSMENT AND PLAN: An 86-year-old male who was admitted with severe hyponatremia and associated symptoms. I have been consulted for hyponatremia management. The patient appears somewhat hypovolemic to euvolemic. Given how stable his vital signs and blood pressure is, as well as how normal his BUN and creatinine is, it is unlikely that the patient is massively dehydrated. In any case, volume depletion is associated with hypernatremia, unless there is a concomitant underlying SIADH. His urine osmolarity is extremely high at 1000+. Urine sodium is more than 100. 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 Given that the patient was not eating, drinking much for the last few days to a week, he may have a superimposed volume depletion + low osmolar diet which made the hyponatremia even worse. RECOMMENDATIONS: 1. Normal saline at 75 mL per hour. 2. BMP every 4 hours x4. 3. Repeat urine osmolarity today. 4. Lasix 20 mg IV x1 to decrease the urine osmolarity. 5. Urea 15 grams twice daily to lower the urine osmolarity. Unless we lower the urine osmolarity, it is unlikely for the serum sodium to go higher. Normal saline alone is unlikely to increase the serum sodium given how high the urine osmolarity is. In any case, we will have to adjust the management, according to the blood work and the rate of rise of serum sodium. Thank you very much for the consult. Job ID: [id number] MTDD
[2022-06-28 13:37] LABS: Calcium 8.1 mg/dl (8.5-10.1); Creatinine Clr Calc Pharmacy 65.6 ml/min; Est GFR (African American) 92.3 ml/min; Est GFR (Non-African American) 79.6 ml/min
--- NOTE | 2022-06-28 14:02 | Hospitalist Progress Note ---
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 Patient was referred from the PCP office to ED because of dehydration. His last sodium worked on 06/09/2022 as an outpatient was sodium of 134. Has not had any seizures. Is being managed for the following: Severe hyponatremia Likely SIADH Admitting sodium of 117, patient was oriented and conversive at presentation. Status post NSS in the ED, also status post 3% saline infusion on 06/27. Admitting urine sodium of 214 and urine osmolality of 1069. Admitting EKG with sinus rhythm with first-degree AV block. Likely secondary to decreased appetite on the background of acute SIADH ?? from Viral URI Sodium trends without much improvement, BMP every 4 hours. Nephrology on board, managing IV fluids and Lasix/sodium level. Appreciate recommendation. Continue to monitor over telemetry, neurological examination every shift. Pending urine Legionella, negative flu and COVID and RSV. Upper respiratory tract infection, viral: - Continue supportive care of cough with Hycodan cough syrup - No leukocytosis, admitting CXR with no active disease in the chest. - Neg covid, influenza and RSV, pending legionella urine - On room air with O2 sats at 93 %, no supplemental O2 use at baseline - Can consider addition of albuterol nebulizer if develops wheeze however does not have currently - Encourage incentive spirometry, flutter, mucinex CAD (coronary artery disease): -May continue baby aspirin -[facility], Dr. Bernal as an outpatient: Single-vessel coronary arthrosclerosis of the left circumflex by cardiac cath in 2013 -Hyperlipidemia with a poor statin intolerance on low-dose therapy, can continue - EKG reviewed, RBBB noted, old, no cardiac symptoms upon admission Other chronic medical conditions: HLD/CKD/hypothyroidism --->> continue with/resume home meds as and when able. Last TSH was 7.90 Free T4 1.0, PCP last note from 06/12 noted to stay on the same dose and encouraged patient to take daily, question noncompliance? DVT prophylaxis: Teds, SCDs CODE STATUS: Full code Dispo: Pending improvement in sodium level. PT/OT. CM to assist. Admission and Anticipated Discharge Date Admission Date: June 27, 2022 Subjective Patient seen and examined at bedside as a follow-up of severe hyponatremia and likely viral upper respiratory tract infection. Patient was lying in bed, alert and oriented x3, on room air, NAD, has cough which is mostly dry, was not able to sleep overnight due to cough, reports muscle pain and cramps, denies headache, patient reports that he was not eating since few days to week prior to arrival but lately appetite has little bit improved, is moving bowels okay, denies fever or chills or chest pain or palpitation or other review of symptoms. Physical Exam Physical Exam: GENERAL: Alert and oriented x3. NAD, on RA. HEENT: No pallor, no icterus. Pupils equal, round and reactive to light. Oral mucosa moist. NECK: No JVD, no neck masses. HEART: S1 and S2 heard. Regular rate and rhythm. No murmur, no gallop. RESPIRATORY SYSTEM: Normal AP diameter. No accessory muscle use. No wheezing, b/l crackles. ABDOMEN: Soft, bowel sounds present, nontender, no distention. CENTRAL NERVOUS SYSTEM: No facial droop. Speech is clear. Obeys simple commands. Moves extremities. EXTREMITIES: No edema, no erythema seen. Results & Data Results & Data ([facility]) Vital Signs (Past 12 Hours) Vital Signs Temp Pulse Resp BP Pulse Ox O2 Del Method 06/28/22 12:33 36.6 C 47 L 18 147/72 H 93 Room Air 06/28/22 08:42 36.6 C 70 18 131/76 91 Room Air 06/28/22 03:59 36.5 C 68 20 127/69 95 Room Air
[2022-06-28] MEDS: FUROSEMIDE INJ 20 MG/2 ML VIAL IV SCH ×2 (14:31→20:21)
[2022-06-28] MEDS: UREA (UREA-NA) 15 GM PACK PO SCH ×2 (14:31→14:32)
[2022-06-28 17:37] LABS: BUN Creatinine Ratio 22.2 (10-20); Calcium 8.2 mg/dl (8.5-10.1); Est GFR (African American) 80.7 ml/min; Est GFR (Non-African American) 69.6 ml/min
[2022-06-28 21:27] LABS: BUN Creatinine Ratio 25.7 (10-20); Calcium 8.2 mg/dl (8.5-10.1); Creatinine Clr Calc Pharmacy 55.8 ml/min; Est GFR (African American) 78.8 ml/min; Potassium 3.7 mmol/L (3.5-5.1)
[2022-06-28] MEDS ORDERED: STAT IV STA (22:25)
[2022-06-28] MEDS ORDERED: SODIUM CHLORIDE 3 % 150 ML IV ONE (22:25)
[2022-06-29 05:26] LABS: Hematocrit (blood only) 32.4 % (40.1-51.0); Hemoglobin 11.8 g/dl (14.0-18.0); Mean Corpuscular Hemoglobin 29.4 pg (25.0-34.0); Mean Corpuscular Hgb Conc 36.4 g/dL (32.0-36.0); Mean Corpuscular Volume 80.8 fL (80.0-100.0); Mean Platelet Volume 10.1 fL (9.4-12.4); Platelet Count 215 K/uL (130-400); RDW Coefficient of Variation 12.6 % (11.5-14.5); RDW Standard Deviation 36.8 fL (36.4-46.3); Red Blood Count 4.01 M/uL (4.63-6.08); White Blood Count 9.54 K/ul (4.8-10.8)
[2022-06-29 05:51] LABS: Calcium 8.6 mg/dl (8.5-10.1); Creatinine Clr Calc Pharmacy 56.9 ml/min; Est GFR (African American) 79.7 ml/min; Est GFR (Non-African American) 68.8 ml/min; Magnesium 1.8 mg/dl (1.7-2.4); Phosphorus 3.2 mg/dl (2.5-4.9); Potassium 3.5 mmol/L (3.5-5.1)
[2022-06-29] MEDS: LEVOTHYROXINE SODIUM 50 MCG TABLET PO SCH (06:00)
[2022-06-29] MEDS: ASPIRIN 81 MG ECTAB PO SCH (08:44)
[2022-06-29] MEDS: UREA (UREA-NA) 15 GM PACK PO SCH ×2 (08:44→21:22)
[2022-06-29] MEDS: PANTOprazole 40 MG TAB PO SCH (08:44)
[2022-06-29] MEDS: FUROSEMIDE INJ 20 MG/2 ML VIAL IV SCH ×3 (08:44→21:21)
[2022-06-29] MEDS: EZETIMIBE 10 MG TABLET PO SCH (08:45)
[2022-06-29] MEDS: guaiFENesin 600 MG TABCR PO SCH ×2 (08:45→21:22)
--- NOTE | 2022-06-29 10:05 | Nephrology Progress Note ---
Date of Service June 29, 2022 Assessment & Plan Admission and Anticipated Discharge Date Admission Date: June 27, 2022 Subjective S--still having some Cramp of muscles. PHYSICAL EXAMINATION: GENERAL: Elderly white male who is not in any overt respiratory distress. HEENT: Mucous membrane is dry. NECK: Supple. No jugular venous distention. CHEST: Bilateral decreased breath sounds, occasional crackles, but overall unremarkable. CARDIOVASCULAR: S1 and S2, regular. ABDOMEN: Soft, nontender. EXTREMITIES: Shows no edema. NEUROLOGICALLY: Awake, alert, oriented x3, normal speech. Moving all 4 extr emities. LABORATORY AND IMAGING:Chest x-ray, no active disease in the chest. WBC count 10,000; hemoglobin 11.2; platelet count 179. Sodium was 117 on admission, most recent one is 120, about 2 hours ago at 10 a.m., so in about 18 hours patient's sodium has gone up by 3. BUN is 12, creatinine 0.87, calcium 8.1, magnesium 1.9. Urine osmolarity extremely high at 1069. Urine sodium 214. Urine ketone 2+. Urine blood negative. Urine legionella test pending. SARS COVID, influenza, RSV negative. ASSESSMENT AND PLAN: An 86-year-old male who was admitted with severe hyponatremia and associated symptoms. I have been consulted for hyponatremia management. The patient appears somewhat hypovolemic to euvolemic. Given how stable his vital signs and blood pressure is, as well as how normal his BUN and creatinine is, it is unlikely that the patient is massively dehydrated. In any case, volume depletion is associated with hypernatremia, unless there is a concomitant underlying SIADH. His urine osmolarity is extremely high at 1000+. Urine sodium is more than 100. 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 Given that the patient was not eating, drinking much for the last few days to a week, he may have a superimposed volume depletion, and also low osmolar diet which made the hyponatremia even worse. RECOMMENDATIONS: 1. Stop NS 2. BMP every 4 hours x2 during day today. 3. Repeat urine osmolarity after iv lasix did show drop in the urine Osm 4. Increase Lasix 30 mg iv tid. to decrease/maintain lower urine osmolarity. 5. Raise Urea to 30 grams twice daily to lower the urine osmolarity. Unless we lower the urine osmolarity, it is unlikely for the serum sodium to go higher. Normal saline actually dropped serum Na. FFR 120 ml per day. rate of correction so far is fine in fact it has been slow.. Results & Data ([facility]) Vital Signs (Past 12 Hours) Vital Signs Temp Pulse Pulse Resp BP Pulse Ox O2 Del Method 06/29/22 08:11 62 06/29/22 07:03 36.8 C 69 18 142/74 H 93 Room Air 06/29/22 02:48 36.7 C 77 20 149/84 H 94 Room Air 06/28/22 23:00 71 06/28/22 23:09 36.9 C 76 18 151/79 H 92 Room Air
--- NOTE | 2022-06-29 12:45 | CT Scan Report ---
CT SCAN OF THE BRAIN WITHOUT IV CONTRAST CLINICAL HISTORY: Syncope. Dizziness. COMPARISON STUDY: No priors. TECHNIQUE: Unenhanced axial CT scan of the brain is performed from the vertex to the skull base. A do se lowering technique was utilized adhering to the principles of ALARA. CT DOSE: 691.05 mGy.cm FINDINGS: Brain parenchyma: There is age-related involutional change noting moderate subcortical and periventri cular microangiopathic disease. There is no hemorrhage, mass effect, or evidence of acute territorial ischemia by CT criteria. 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 Elliott -white matter differentiation is preserved. No extra-axial fluid collection is seen. Ventricles, sulci, cisterns: Prominent secondary to involutional change. Intracranial vasculature: There is atherosclerotic calcification of the cavernous carotid and vertebr al arteries. Calvarium: The skeletal structures are osteopenic. No depressed calvarial fracture is identified. Sinuses and mastoids: There is mild mucosal thickening within the maxillary antra and the ethmoid sin uses. There are trace mastoid effusion. Orbits: The bony orbits are grossly intact. IMPRESSION: There is no hemorrhage, mass effect, or evidence of acute territorial ischemia by CT [place]. ACT 112: Negative or not required by law. Electronically signed by: Bandar Boss M.D. 06/29/2022 12:43 PM
[2022-06-29 13:21] LABS: Albumin Globulin Ratio 1.3 (0.9-2); Albumin Level 3.8 gm/dl (3.4-5.0); BUN Creatinine Ratio 31.1 (10-20); Bilirubin,Total 0.8 mg/dl (0.2-1.0); Calcium 8.9 mg/dl (8.5-10.1); Creatinine Clr Calc Pharmacy 55.3 ml/min; Est GFR (Non-African American) 66.4 ml/min; Magnesium 1.8 mg/dl (1.7-2.4); Phosphorus 3.4 mg/dl (2.5-4.9); Potassium 3.3 mmol/L (3.5-5.1); Total Protein 6.8 gm/dl (6.0-8.3)
[2022-06-29 13:27] LABS: Troponin I High Sensitivity 10.4 pg/ml (0-20)
[2022-06-29] MEDS ORDERED: POTASSIUM CHLORIDE CRTAB 20 MEQ TABCR PO STA ×2 (13:55→16:54)
[2022-06-29] MEDS: POTASSIUM CHLORIDE / WTR 10 MEQ/100 ML PLCT IV SCH ×2 (14:29→15:29)
[2022-06-29 14:44] LABS: BUN Creatinine Ratio 32.3 (10-20); Calcium 8.6 mg/dl (8.5-10.1); Creatinine Clr Calc Pharmacy 57.5 ml/min; Est GFR (African American) 80.7 ml/min; Est GFR (Non-African American) 69.6 ml/min; Potassium 3.2 mmol/L (3.5-5.1)
--- NOTE | 2022-06-29 16:54 | Hospitalist Progress Note ---
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 Patient was referred from the PCP office to ED because of dehydration. His last sodium worked on 06/09/2022 as an outpatient was sodium of 134. Has not had any seizures. Is being managed for the following: Severe hyponatremia Likely SIADH Admitting sodium of 117, patient was oriented and conversive at presentation. Status post NSS in the ED, also status post 3% saline infusion on 06/27. Admitting urine sodium of 214 and urine osmolality of 1069. Admitting EKG with sinus rhythm with first-degree AV block. Likely secondary to decreased appetite on the background of acute SIADH ?? from Viral URI Sodium trends without much improvement, BMP every 4 hours. Nephrology on board, no IV fluids now and c/w Lasix/ measure sodium level. Appreciate recommendation. Continue to monitor over telemetry, neurological examination every shift. Pending urine Legionella, negative flu and COVID and RSV. Upper respiratory tract infection, viral: - Continue supportive care of cough with Hycodan cough syrup - No leukocytosis, admitting CXR with no active disease in the chest. - Neg covid, influenza and RSV, pending legionella urine - On room air with O2 sats at 93 %, no supplemental O2 use at baseline - Can consider addition of albuterol nebulizer if develops wheeze however does not have currently - Encourage incentive spirometry, flutter, mucinex Likely vasovagal syncope: patient passed out 06/29 while urinating, RUTHY caught and pt didn't hit anywhere, CT Head was negative. Likely vasovagal, c/w telemetry, Fall precaution. CAD (coronary artery disease): -May continue baby aspirin -Follows with [facility], Dr. Bernal as an outpatient: Single-vessel coronary arthrosclerosis of the left circumflex by cardiac cath in 2013 -Hyperlipidemia with a poor statin intolerance on low-dose therapy, can continue - EKG reviewed, RBBB noted, old, no cardiac symptoms upon admission Other chronic medical conditions: HLD/CKD/hypothyroidism --->> continue with/resume home meds as and when able. Last TSH was 7.90 Free T4 1.0, PCP last note from 06/12 noted to stay on the same dose and encouraged patient to take daily, question noncompliance? DVT prophylaxis: Teds, SCDs CODE STATUS: Full code Dispo: Pending improvement in sodium level. PT/OT. CM to assist. Admission and Anticipated Discharge Date Admission Date: June 27, 2022 Subjective Patient seen and examined at bedside as a follow-up of severe hyponatremia and likely viral upper respiratory tract infection. Patient was lying in bed, alert and oriented x3, on room air, NAD, has cough which is mostly dry, is about the same, reports muscle pain and cramps about the same, denies headache, reports eating ok though, is moving bowels okay, denies fever or chills or chest pain or palpitation or other review of symptoms. Later early in the afternoon/late morning, i was paged for syncope. Patient was working with PT/OT, his blood pressure while sitting was 110/69, and when standing was 97/52, patient woke with PT/OT and walked around in the room, then prior to going back to bed he went to urinate, and while passing urine, he passed out but fortunately his son-in-law caught him and he did not hit anywhere. Telemetry reviewed at the time revealed likely sinus bradycardia with heart rate in 30s, there were a lot of artifacts. EKG obtained and is sinus rhythm with first-degree block, no acute ST or T changes. CMP reviewed, sodium low but stable around where it was in the morning and gradually improving compared to what he came in with. High-sensitivity troponin and lactate negative, patient without chest pain, patient was feeling dizzy at bedside exam, patient passed out briefly but no involuntary movements as per son-in-law. Likely vasovagal syncope. Orthostatic vitals obtained, are positive but lowest blood pressure is still better at 126/[address] head negative for any acute findings. Physical Exam Physical Exam: GENERAL: Alert and oriented x3. NAD, on RA. HEENT: No pallor, no icterus. Pupils equal, round and reactive to light. Oral mucosa moist. NECK: No JVD, no neck masses. HEART: S1 and S2 heard. Regular rate and rhythm. No murmur, no gallop. RESPIRATORY SYSTEM: Normal AP diameter. No accessory muscle use. No wheezing, b/l crackles improving ABDOMEN: Soft, bowel sounds present, nontender, no distention. CENTRAL NERVOUS SYSTEM: No facial droop. Speech is clear. Obeys simple commands. Moves extremities. EXTREMITIES: No edema, no erythema seen. Results & Data Results & Data ([facility]) Vital Signs (Past 12 Hours) Vital Signs Temp Pulse Pulse Resp BP Pulse Ox Pulse Ox 06/29/22 15:08 71 06/29/22 14:30 95 06/29/22 12:19 36.7 C 70 18 121/65 95 06/29/22 08:11 62 06/29/22 07:03 36.8 C 69 18 142/74 H 93 O2 Del Method O2 Flow Rate 06/29/22 15:08 06/29/22 14:30 0 06/29/22 12:19 Room Air 06/29/22 08:11 06/29/22 07:03 Room Air
[2022-06-29 20:45] LABS: BUN Creatinine Ratio 26.6 (10-20); Calcium 9.1 mg/dl (8.5-10.1); Creatinine Clr Calc Pharmacy 52.2 ml/min; Est GFR (African American) 71.9 ml/min; Potassium 4.1 mmol/L (3.5-5.1)
[2022-06-29] MEDS: ONDANSETRON INJ 2 MG/ML 2 ML VIAL IV PRN (21:29)
[2022-06-30 02:46] LABS: BUN Creatinine Ratio 47.5 (10-20); Calcium 9.8 mg/dl (8.5-10.1); Creatinine Clr Calc Pharmacy 47.4 ml/min; Est GFR (Non-African American) 55.2 ml/min; Potassium 4.1 mmol/L (3.5-5.1)
[2022-06-30] MEDS: LEVOTHYROXINE SODIUM 50 MCG TABLET PO SCH (05:54)
[2022-06-30] MEDS: PANTOprazole 40 MG TAB PO SCH (08:14)
[2022-06-30] MEDS: ROSUVASTATIN CALCIUM 5 MG TAB PO SCH (08:14)
[2022-06-30] MEDS: UREA (UREA-NA) 15 GM PACK PO SCH ×2 (08:14→20:21)
[2022-06-30] MEDS: EZETIMIBE 10 MG TABLET PO SCH (08:14)
[2022-06-30] MEDS: guaiFENesin 600 MG TABCR PO SCH ×2 (08:15→20:21)
[2022-06-30] MEDS: ASPIRIN 81 MG ECTAB PO SCH (08:15)
[2022-06-30] MEDS: FUROSEMIDE INJ 20 MG/2 ML VIAL IV SCH ×3 (08:15→20:09)
[2022-06-30 08:43] LABS: Hematocrit (blood only) 35.3 % (40.1-51.0); Hemoglobin 12.7 g/dl (14.0-18.0); Mean Corpuscular Hemoglobin 29.1 pg (25.0-34.0); Mean Platelet Volume 10.1 fL (9.4-12.4); Platelet Count 267 K/uL (130-400); RDW Coefficient of Variation 12.8 % (11.5-14.5); RDW Standard Deviation 37.4 fL (36.4-46.3); Red Blood Count 4.36 M/uL (4.63-6.08); White Blood Count 10.77 K/ul (4.8-10.8)
[2022-06-30 09:18] LABS: BUN Creatinine Ratio 40.8 (10-20); Calcium 9.5 mg/dl (8.5-10.1); Creatinine Clr Calc Pharmacy 47.4 ml/min; Est GFR (Non-African American) 55.2 ml/min; Phosphorus 3.5 mg/dl (2.5-4.9); Potassium 3.5 mmol/L (3.5-5.1)
[2022-06-30] MEDS: ONDANSETRON INJ 2 MG/ML 2 ML VIAL IV PRN (12:56)
[2022-06-30] MEDS: BENZONATATE 100 MG CAPSULE PO SCH ×2 (13:24→20:21)
--- NOTE | 2022-06-30 15:11 | Nephrology Progress Note ---
Date of Service June 30, 2022 Assessment & Plan (1) Acute hyponatremia: Plan: An 86-year-old male who was admitted with severe hyponatremia and associated symptoms.Volume depletion is associated with hypernatremia, unless there is a concomitant underlying SIADH. His urine osmolarity was extremely high at 1000+.SIADH. 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 - Given that the patient was not eating, drinking much for the last few days to a week, he likley had superimposed volume depletion, and also low osmolar diet which made the hyponatremia worse.He has received , iv fluid, hypertonic saline and urea till now. -Repeat urine osmolarity after iv lasix did show drop in the urine Osm - Sodium correction is on target, -Continue on lasix 30 mg TID with Urea 30 gms BID. (2) Weakness: Admission and Anticipated Discharge Date Admission Date: June 27, 2022 Subjective Patient seen and examined at bedside as a follow-up of severe hyponatremia and likely viral upper respiratory tract infection. Looks cachecticm, not in distress, uop has somewhat improved. Alert and oriented, Review of Systems Review of Systems: All systems reviewed & are unremarkable except as noted in HPI & below Physical Exam Physical Exam: GENERAL: Elderly white male who is not in any overt respiratory distress. HEENT: Mucous membrane is dry. NECK: Supple. No jugular venous distention. CHEST: Bilateral decreased breath sounds, occasional crackles, but overall unremarkable. CARDIOVASCULAR: S1 and S2, regular. ABDOMEN: Soft, nontender. EXTREMITIES: Shows no edema. NEUROLOGICALLY: Awake, alert, oriented x3, normal speech. Moving all 4 extremities. Results & Data ([facility]) Vital Signs (Past 12 Hours) Vital Signs Temp Pulse Pulse Resp BP Pulse Ox O2 Del Method 06/30/22 13:25 114/64 06/30/22 12:33 36.4 C L 68 17 115/70 94 Room Air 06/30/22 09:56 Room Air 06/30/22 08:36 66 06/30/22 08:22 118/68 06/30/22 07:17 36.5 C 69 18 95/54 L 93 Room Air 06/30/22 03:14 36.6 C 75 18 116/57 L 95 Room Air Laboratory Results 06/30/22 07:54 06/30/22 07:54
--- NOTE | 2022-06-30 16:52 | Hospitalist Progress Note ---
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 Patient was referred from the PCP office to ED because of dehydration. His last sodium worked on 06/09/2022 as an outpatient was sodium of 134. Has not had any seizures. Is being managed for the following: Severe hyponatremia Likely SIADH Admitting sodium of 117, patient was oriented and conversive at presentation. Status post NSS in the ED, also status post 3% saline infusion on 06/27. Admitting urine sodium of 214 and urine osmolality of 1069. Admitting EKG with sinus rhythm with first-degree AV block. Likely secondary to decreased appetite on the background of acute SIADH ?? from Viral URI Sodium trends gradually improving, BMP now and then in the a.m. and as needed. Nephrology on board, c/w Lasix/ measure sodium level. Appreciate recommendation. Continue to monitor over telemetry. Pending urine Legionella, negative flu and COVID and RSV. Upper respiratory tract infection, viral: - Continue supportive care of cough with Hycodan cough syrup - No leukocytosis, admitting CXR with no active disease in the chest. - Neg covid, influenza and RSV, pending legionella urine - On room air with O2 sats at 93 %, no supplemental O2 use at baseline - Can consider addition of albuterol nebulizer if develops wheeze however does not have currently - Encourage incentive spirometry, flutter, mucinex -Patient reports improving cough and muscle cramps. Patient reports feeling better. Likely vasovagal syncope: patient passed out 06/29 while urinating, RUTHY caught and pt didn't hit anywhere, CT Head was negative. Likely vasovagal, c/w telemetry, Fall precaution. CAD (coronary artery disease): -May continue baby aspirin -Follows with [facility] cardiology, Dr. Bernal as an outpatient: Single-vessel coronary arthrosclerosis of the left circumflex by cardiac cath in 2013 -Hyperlipidemia with a poor statin intolerance on low-dose therapy, can continue - EKG reviewed, RBBB noted, old, no cardiac symptoms upon admission Other chronic medical conditions: HLD/CKD/hypothyroidism --->> continue with/resume home meds as and when able. Last TSH was 7.90 Free T4 1.0, PCP last note from 06/12 noted to stay on the same dose and encouraged patient to take daily, question noncompliance? DVT prophylaxis: Teds, SCDs CODE STATUS: Full code Dispo: Pending improvement in sodium level. PT/OT. CM to assist. Likely will need rehab. Admission and Anticipated Discharge Date Admission Date: June 27, 2022 Subjective Patient seen and examined at bedside as a follow-up of severe hyponatremia and likely viral upper respiratory tract infection. Patient was lying in bed, alert and oriented x3, on room air, NAD, reports improving cough and muscle cramps. Denies headache, reports eating ok, is moving bowels okay, denies fever or chills or chest pain or palpitation or other review of symptoms. Reports feeling better, patient's daughter by bedside and updated. Physical Exam Physical Exam: GENERAL: Alert and oriented x3. NAD, on RA. HEENT: No pallor, no icterus. Pupils equal, round and reactive to light. Oral mucosa moist. NECK: No JVD, no neck masses. HEART: S1 and S2 heard. Regular rate and rhythm. No murmur, no gallop. RESPIRATORY SYSTEM: Normal AP diameter. No accessory muscle use. No wheezing, b/l crackles improving ABDOMEN: Soft, bowel sounds present, nontender, no distention. CENTRAL NERVOUS SYSTEM: No facial droop. Speech is clear. Obeys simple commands. Moves extremities. EXTREMITIES: No edema, no erythema seen. Results & Data Results & Data ([facility]) Vital Signs (Past 12 Hours) Vital Signs Temp Pulse Pulse Resp BP Pulse Ox O2 Del Method 06/30/22 15:06 67 06/30/22 13:25 114/64 06/30/22 12:33 36.4 C L 68 17 115/70 94 Room Air 06/30/22 09:56 Room Air 06/30/22 08:36 66 06/30/22 08:22 118/68 06/30/22 07:17 36.5 C 69 18 95/54 L 93 Room Air
[2022-06-30 18:30] LABS: Calcium 9.6 mg/dl (8.5-10.1); Est GFR (African American) 50.5 ml/min; Est GFR (Non-African American) 43.5 ml/min; Potassium 3.7 mmol/L (3.5-5.1)
[2022-06-30] MEDS ORDERED: STAT IV STA (18:44)
[2022-06-30] MEDS ORDERED: SODIUM CHLORIDE 3 % 100 ML IV ONE (18:44)
--- NOTE | 2022-06-30 22:28 | Electrocardiogram Report ---
Test Reason : Blood Pressure : / mmHG Vent. Rate : 059 BPM Atrial Rate : 059 BPM P-R Int : 240 ms QRS Dur : 142 ms QT Int : 508 ms P-R-T Axes : 082 085 082 degrees QTc Int : 502 ms Sinus bradycardia with 1st degree A-V block Right bundle branch block Abnormal ECG When compared with ECG of 27-JUN-2022 15:02, No significant change Confirmed by Negrito Marin ([id number]) on 06/30/2022 10:28:19 PM Referred By: Nani Rivera Confirmed By:Negrito Marin
[2022-07-01 06:42] LABS: BUN Creatinine Ratio 49.7 (10-20); Calcium 9.4 mg/dl (8.5-10.1); Creatinine Clr Calc Pharmacy 31.5 ml/min; Est GFR (African American) 42.3 ml/min; Est GFR (Non-African American) 36.5 ml/min; Magnesium 2.1 mg/dl (1.7-2.4); Phosphorus 3.8 mg/dl (2.5-4.9); Potassium 3.4 mmol/L (3.5-5.1)
[2022-07-01] MEDS: LEVOTHYROXINE SODIUM 50 MCG TABLET PO SCH (06:45)
[2022-07-01] MEDS: guaiFENesin 600 MG TABCR PO SCH ×2 (08:53→20:15)
[2022-07-01] MEDS: UREA (UREA-NA) 15 GM PACK PO SCH ×2 (08:53→20:15)
[2022-07-01] MEDS: ASPIRIN 81 MG ECTAB PO SCH (08:53)
[2022-07-01] MEDS: EZETIMIBE 10 MG TABLET PO SCH (08:53)
[2022-07-01] MEDS: PANTOprazole 40 MG TAB PO SCH (08:53)
[2022-07-01] MEDS: BENZONATATE 100 MG CAPSULE PO SCH ×3 (08:53→20:15)
[2022-07-01] MEDS: FUROSEMIDE INJ 20 MG/2 ML VIAL IV SCH ×3 (09:26→20:16)
[2022-07-01] MEDS: POTASSIUM CHLORIDE CRTAB 20 MEQ TABCR PO SCH ×2 (09:27→11:03)
[2022-07-01] MEDS ORDERED: STAT IV STA (13:50)
[2022-07-01] MEDS ORDERED: SODIUM CHLORIDE 3 % 150 ML IV ONE (13:50)
--- NOTE | 2022-07-01 14:28 | Nephrology Progress Note ---
Date of Service July 01, 2022 Assessment & Plan (1) Acute hyponatremia: Plan: An 86-year-old male who was admitted with severe hyponatremia and associated symptoms.Volume depletion is associated with hypernatremia, unless there is a concomitant underlying SIADH. His urine osmolarity was extremely high at 1000+.SIADH. 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 - Given that the patient was not eating, drinking much for the last few days to a week, he likley had superimposed volume depletion, and also low osmolar diet which made the hyponatremia worse.He has received , iv fluid, hypertonic saline and urea. - brittle hyponatremia, but responsed ro 30 mls/ hr ( for 3 hr ) of hypertonic saline.- NA 127 today - however his renl function have now started to decline. -DecreAse lasix to 20 mg TID, -30 mls/hr of 3% Saline for 5 hours today. - Continue with Urea 30 gms BID. (2) Weakness: Admission and Anticipated Discharge Date Admission Date: June 27, 2022 Subjective Patient seen and examined at bedside as a follow-up of severe hyponatremia and likely viral upper respiratory tract infection. Patient was lying in bed, alert and oriented x3, on room air, no complains. Review of Systems Review of Systems: All systems reviewed & are unremarkable except as noted in HPI & below Physical Exam Physical Exam: GENERAL: Elderly white male who is not in any overt respiratory distress. HEENT: Mucous membrane is dry. NECK: Supple. No jugular venous distention. CHEST: Bilateral decreased breath sounds, occasional crackles, but overall unremarkable. CARDIOVASCULAR: S1 and S2, regular. ABDOMEN: Soft, nontender. EXTREMITIES: Shows no edema. NEUROLOGICALLY: Awake, alert, oriented x3, normal speech. Moving all 4 extremities. Results & Data ([facility]) Vital Signs (Past 12 Hours) Vital Signs Temp Pulse Pulse Resp BP BP Pulse Ox 07/01/22 14:21 101/52 L 07/01/22 11:02 36.5 C 71 16 99/63 L 96 07/01/22 10:10 07/01/22 08:48 94/58 L 07/01/22 07:53 36.4 C L 63 18 91/57 L 92 07/01/22 07:29 65 O2 Del Method 07/01/22 14:21 07/01/22 11:02 Room Air 07/01/22 10:10 Room Air 07/01/22 08:48 07/01/22 07:53 Room Air 07/01/22 07:29 Laboratory Results 06/30/22 07:54 07/01/22 05:40
--- NOTE | 2022-07-01 17:29 | Hospitalist Progress Note ---
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 Patient was referred from the PCP office to ED because of dehydration. His last sodium worked on 06/09/2022 as an outpatient was sodium of 134. Has not had any seizures. Is being managed for the following: Severe hyponatremia/acute kidney injury Likely SIADH Admitting sodium of 117, patient was oriented and conversive at presentation. Status post NSS in the ED, also status post 3% saline infusion on 06/27. Admitting urine sodium of 214 and urine osmolality of 1069. Admitting EKG with sinus rhythm with first-degree AV block. Likely secondary to decreased appetite on the background of acute SIADH ?? from Viral URI Sodium trends gradually improving, BMP in the a.m. and as needed. Nephrology on board, Discussed with nephrology, Lasix decreased to 20 Mg 3 times daily, hypertonic saline. Creatinine worsening likely secondary to hypovolemia secondary to Lasix use and fluid restriction. We will continue to monitor. Discussed with nephrology. Status post 3% hypertonic saline 06/30 and 07/01 Continue to monitor over telemetry. Pending urine Legionella, negative flu and COVID and RSV. Upper respiratory tract infection, viral: - Continue supportive care of cough with Hycodan cough syrup - No leukocytosis, admitting CXR with no active disease in the chest. - Neg covid, influenza and RSV, pending legionella urine - On room air with O2 sats at 93 %, no supplemental O2 use at baseline - Can consider addition of albuterol nebulizer if develops wheeze however does not have currently - Encourage incentive spirometry, flutter, mucinex -Patient reports improving cough and muscle cramps. Patient reports feeling better. Likely vasovagal syncope: patient passed out 06/29 while urinating, RUTHY caught and pt didn't hit anywhere, CT Head was negative. Likely vasovagal, c/w telemetry, Fall precaution. CAD (coronary artery disease): -January continue baby aspirin -Follows with [facility] cardiology, Dr. Bernal as an outpatient: Single-vessel coronary arthrosclerosis of the left circumflex by cardiac cath in 2013 -Hyperlipidemia with a poor statin intolerance on low-dose therapy, can continue - EKG reviewed, RBBB noted, old, no cardiac symptoms upon admission Other chronic medical conditions: HLD/CKD/hypothyroidism --->> continue with/resume home meds as and when able. Last TSH was 7.90 Free T4 1.0, PCP last note from 06/12 noted to stay on the same dose and encouraged patient to take daily, question noncompliance? DVT prophylaxis: Teds, SCDs CODE STATUS: Full code Dispo: Pending improvement in sodium level. PT/OT. CM to assist. Likely will need rehab. Admission and Anticipated Discharge Date Admission Date: June 27, 2022 Subjective Patient seen and examined at bedside as a follow-up of severe hyponatremia and likely viral upper respiratory tract infection. Patient was lying in bed, alert and oriented x3, on room air, NAD, reports improving cough but just had bouts of cough prior to my arrical and improving muscle cramps. Denies headache, reports eating ok, usu BM is once every 3 day, denies fever or chills or chest pain or palpitation or other review of symptoms. Reports feeling better. Pt made aware of Na level and acute injury to kidney due to Na level treament meds lasix. Physical Exam Physical Exam: GENERAL: Alert and oriented x3. NAD, on RA. HEENT: No pallor, no icterus. Pupils equal, round and reactive to light. Oral mucosa moist. NECK: No JVD, no neck masses. HEART: S1 and S2 heard. Regular rate and rhythm. No murmur, no gallop. RESPIRATORY SYSTEM: Normal AP diameter. No accessory muscle use. No wheezing, b/l crackles improving ABDOMEN: Soft, bowel sounds present, nontender, no distention. CENTRAL NERVOUS SYSTEM: No facial droop. Speech is clear. Obeys simple commands. Moves extremities. EXTREMITIES: No edema, no erythema seen. Results & Data Results & Data ([facility]) Vital Signs (Past 12 Hours) Vital Signs Temp Pulse Pulse Resp BP BP Pulse Ox 07/01/22 15:25 36.8 C 63 19 91/58 L 95 07/01/22 15:09 73 07/01/22 14:21 101/52 L 07/01/22 11:02 36.5 C 71 16 99/63 L 96 07/01/22 10:10 07/01/22 08:48 94/58 L 07/01/22 07:53 36.4 C L 63 18 91/57 L 92 07/01/22 07:29 65 O2 Del Method 07/01/22 15:25 Room Air 07/01/22 15:09 07/01/22 14:21 07/01/22 11:02 Room Air 07/01/22 10:10 Room Air 07/01/22 08:48 07/01/22 07:53 Room Air 07/01/22 07:29
[2022-07-02] MEDS: LEVOTHYROXINE SODIUM 50 MCG TABLET PO SCH (06:05)
[2022-07-02 06:33] LABS: BUN Creatinine Ratio 65.6 (10-20); Est GFR (African American) 47.3 ml/min; Est GFR (Non-African American) 40.8 ml/min; Magnesium 2.3 mg/dl (1.7-2.4); Potassium 3.7 mmol/L (3.5-5.1)
[2022-07-02] MEDS: PANTOprazole 40 MG TAB PO SCH (08:32)
[2022-07-02] MEDS: BENZONATATE 100 MG CAPSULE PO SCH ×3 (08:32→20:17)
[2022-07-02] MEDS: guaiFENesin 600 MG TABCR PO SCH ×2 (08:32→20:17)
[2022-07-02] MEDS: ASPIRIN 81 MG ECTAB PO SCH (08:32)
[2022-07-02] MEDS: ROSUVASTATIN CALCIUM 5 MG TAB PO SCH (08:32)
[2022-07-02] MEDS: UREA (UREA-NA) 15 GM PACK PO SCH ×2 (08:32→20:17)
[2022-07-02] MEDS: FUROSEMIDE INJ 20 MG/2 ML VIAL IV SCH ×2 (08:32→20:18)
[2022-07-02] MEDS: EZETIMIBE 10 MG TABLET PO SCH (08:32)
--- NOTE | 2022-07-02 09:31 | Nephrology Progress Note ---
Date of Service July 02, 2022 Assessment & Plan (1) Acute hyponatremia: Plan: An 86-year-old male who was admitted with severe hyponatremia and associated symptoms.Volume depletion is associated with hypernatremia, unless there is a concomitant underlying SIADH. His urine osmolarity was extremely high at 1000+.SIADH. 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 - Given that the patient was not eating, drinking much for the last few days to a week, he likley had superimposed volume depletion, and also low osmolar diet which made the hyponatremia worse.He has received , iv fluid, hypertonic saline and urea. - brittle hyponatremia, but to hypertonic saline.- NA 134 today - however renal function has started to decline and laisx was decrease to 20 mg TID, BUN raised. -Decrease lasix to 20 mg BID - 3% Saline ( 30 mls/hr for 3 hr ) again today -Decrease urea to 15 mg BID. (2) Weakness: Admission and Anticipated Discharge Date Admission Date: June 27, 2022 Subjective Patient seen and examined at bedside as a follow-up of severe hyponatremia and likely viral upper respiratory tract infection. Patient was lying in bed, alert and oriented Review of Systems Review of Systems: All systems reviewed & are unremarkable except as noted in HPI & below Physical Exam Physical Exam: GENERAL: Elderly white male who is not in any overt respiratory distress. HEENT: Mucous membrane is dry. NECK: Supple. No jugular venous distention. CHEST: Bilateral decreased breath sounds, occasional crackles, but overall unremarkable. CARDIOVASCULAR: S1 and S2, regular. ABDOMEN: Soft, nontender. EXTREMITIES: Shows no edema. NEUROLOGICALLY: Awake, alert, oriented x3, normal speech. Moving all 4 extremities. Results & Data ([facility]) Vital Signs (Past 12 Hours) Vital Signs Temp Pulse Pulse Resp BP Pulse Ox O2 Del Method 07/02/22 08:00 62 07/02/22 07:41 36.4 C L 68 17 115/71 94 Room Air 07/02/22 02:57 36.6 C 68 20 117/73 90 Room Air 07/01/22 23:00 36.5 C 71 20 110/50 L 96 Room Air
--- NOTE | 2022-07-02 15:05 | Hospitalist Progress Note ---
Date of Service July 02, 2022 Assessment & Plan (1) Acute hyponatremia: Plan 86-year-old male with PMH of CKD stage III, HLD, hypothyroidism presented to the ED 06/27/2022 with complaint of acute onset of nausea/vomiting/lethargy/dizziness/fatigue since few days [employer]. He was recently treated for viral URI as an outpatient, he continues to have cough which is mostly dry and has not been eating/drinking since 4 to 5 days [employer]. Patient was referred from the PCP office to ED because of dehydration. His last sodium worked on 06/09/2022 as an outpatient was sodium of 134. Has not had any seizures. Is being managed for the following: Severe hyponatremia/acute kidney injury Likely SIADH Admitting sodium of 117, patient was oriented and conversive at presentation. Status post NSS in the ED, also status post 3% saline infusion on 06/27. Admitting urine sodium of 214 and urine osmolality of 1069. Admitting EKG with sinus rhythm with first-degree AV block. Likely secondary to decreased appetite on the background of acute SIADH ?? from Viral URI Sodium trends gradually improving, BMP in the a.m. and as needed. Nephrology on board, Discussed with nephrology 07/02, Lasix decreased to 20 Mg 2 times daily,no hypertonic saline, urea decreased Creatinine improving somewhat. Status post 3% hypertonic saline 06/30 and 07/01 Continue to monitor over telemetry. Urine Legionella negative, negative flu and COVID and RSV. Pt reports eating better which has decreased due to acute illness. Upper respiratory tract infection, viral: - Continue supportive care of cough with Hycodan cough syrup - No leukocytosis, admitting CXR with no active disease in the chest. - Neg covid, influenza and RSV, pending legionella urine - On room air with O2 sats at 93 %, no supplemental O2 use at baseline - Can consider addition of albuterol nebulizer if develops wheeze however does not have currently - Encourage incentive spirometry, flutter, mucinex -Patient reports improving cough and muscle cramps. Patient reports feeling better. Likely vasovagal syncope: patient passed out 06/29 while urinating, RUTHY caught and pt didn't hit anywhere, CT Head was negative. Likely vasovagal, c/w telemetry, Fall precaution. CAD (coronary artery disease): -May continue baby aspirin -Follows with [facility] cardiology, Dr. Bernal as an outpatient: Single-vessel coronary arthrosclerosis of the left circumflex by cardiac cath in 2013 -Hyperlipidemia with a poor statin intolerance on low-dose therapy, can continue - EKG reviewed, RBBB noted, old, no cardiac symptoms upon admission Other chronic medical conditions: HLD/CKD/hypothyroidism --->> continue with/resume home meds as and when able. Last TSH was 7.90 Free T4 1.0, PCP last note from 06/12 noted to stay on the same dose and encouraged patient to take daily, question noncompliance? DVT prophylaxis: Teds, SCDs CODE STATUS: Full code Dispo: If Na level stablizes w/ no hypertonic saline today then can dc samuel w/ nephro recs and clearance. PT/OT. CM to assist. family declining rehab/snf. Admission and Anticipated Discharge Date Admission Date: June 27, 2022 Subjective Patient seen and examined at bedside as a follow-up of severe hyponatremia and likely viral upper respiratory tract infection. Patient was lying in bed, alert and oriented x3, on room air, NAD, reports improving cough, muscle cramps resolved. Denies headache, reports eating ok, usu BM is once every 3 day, denies fever or chills or chest pain or palpitation or other review of symptoms. Reports feeling better. Pt reports eating better. Pt made aware of Na level and acute injury to kidney due to Na level treatment meds lasix which has been improving today. Physical Exam Physical Exam: GENERAL: Alert and oriented x3. NAD, on RA. HEENT: No pallor, no icterus. Pupils equal, round and reactive to light. Oral mucosa moist. NECK: No JVD, no neck masses. HEART: S1 and S2 heard. Regular rate and rhythm. No murmur, no gallop. RESPIRATORY SYSTEM: Normal AP diameter. No accessory muscle use. No wheezing, b/l crackles improving ABDOMEN: Soft, bowel sounds present, nontender, no distention. CENTRAL NERVOUS SYSTEM: No facial droop. Speech is clear. Obeys simple commands. Moves extremities. EXTREMITIES: No edema, no erythema seen. Results & Data Results & Data ([facility]) Vital Signs (Past 12 Hours) Vital Signs Temp Pulse Pulse Resp BP Pulse Ox O2 Del Method 07/02/22 12:02 36.6 C 75 19 101/62 94 Room Air 07/02/22 09:00 Room Air 07/02/22 08:00 62 07/02/22 07:41 36.4 C L 68 17 115/71 94 Room Air 07/02/22 02:57 36.6 C 68 20 117/73 90 Room Air
[2022-07-03] MEDS: LEVOTHYROXINE SODIUM 50 MCG TABLET PO SCH (05:52)
[2022-07-03 07:35] LABS: Hematocrit (blood only) 36.4 % (40.1-51.0); Hemoglobin 12.6 g/dl (14.0-18.0); Mean Corpuscular Hemoglobin 29.2 pg (25.0-34.0); Mean Corpuscular Hgb Conc 34.6 g/dL (32.0-36.0); Mean Corpuscular Volume 84.3 fL (80.0-100.0); Mean Platelet Volume 9.9 fL (9.4-12.4); Platelet Count 337 K/uL (130-400); RDW Coefficient of Variation 13.4 % (11.5-14.5); RDW Standard Deviation 41.8 fL (36.4-46.3); Red Blood Count 4.32 M/uL (4.63-6.08); White Blood Count 16.59 K/ul (4.8-10.8)
[2022-07-03 08:10] LABS: BUN Creatinine Ratio 65.7 (10-20); Calcium 9.9 mg/dl (8.5-10.1); Creatinine Clr Calc Pharmacy 37.1 ml/min; Est GFR (African American) 53.1 ml/min; Est GFR (Non-African American) 45.8 ml/min; Magnesium 2.3 mg/dl (1.7-2.4); Potassium 3.6 mmol/L (3.5-5.1)
[2022-07-03] MEDS: PANTOprazole 40 MG TAB PO SCH (08:48)
[2022-07-03] MEDS: ASPIRIN 81 MG ECTAB PO SCH (08:48)
[2022-07-03] MEDS: EZETIMIBE 10 MG TABLET PO SCH (08:48)
[2022-07-03] MEDS: FUROSEMIDE INJ 20 MG/2 ML VIAL IV SCH (08:48)
[2022-07-03] MEDS: guaiFENesin 600 MG TABCR PO SCH ×2 (08:48→20:43)
[2022-07-03] MEDS: BENZONATATE 100 MG CAPSULE PO SCH ×3 (08:48→20:42)
[2022-07-03] MEDS: UREA (UREA-NA) 15 GM PACK PO SCH ×2 (08:49→20:44)
--- NOTE | 2022-07-03 09:16 | Nephrology Progress Note ---
Date of Service July 03, 2022 Assessment & Plan (1) Acute hyponatremia: Plan: An 86-year-old male who was admitted with severe hyponatremia and associated symptoms.Volume depletion is associated with hypernatremia, unless there is a concomitant underlying SIADH. His urine osmolarity was extremely high at 1000+.SIADH. 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 - Given that the patient was not eating, drinking much for the last few days to a week, he likley had superimposed volume depletion, and also low osmolar diet which made the hyponatremia worse.He has received , iv fluid, hypertonic saline and urea. - brittle hyponatremia, Needing hypertonic saline.- NA 134---135 -Renal fucntion and BUN improved -Continue lasix to 20 mg BID and urea 15 mg BID. - She will need this combation senior care -No more need of 3% Saline.I discontinued it on 07/02 (2) Weakness: Admission and Anticipated Discharge Date Admission Date: June 27, 2022 Subjective Patient seen and examined at bedside as a follow-up of severe hyponatremia and likely viral upper respiratory tract infection. Patient was lying in bed, alert and oriented x3, Review of Systems Review of Systems: All systems reviewed & are unremarkable except as noted in HPI & below Physical Exam Physical Exam: GENERAL: Elderly white male who is not in any overt respiratory distress. HEENT: Mucous membrane is dry. NECK: Supple. No jugular venous distention. CHEST: Bilateral decreased breath sounds, occasional crackles, but overall unremarkable. CARDIOVASCULAR: S1 and S2, regular. ABDOMEN: Soft, nontender. EXTREMITIES: Shows no edema. NEUROLOGICALLY: Awake, alert, oriented x3, normal speech. Moving all 4 extremities. Results & Data ([facility]) Vital Signs (Past 12 Hours) Vital Signs Temp Pulse Pulse Resp BP Pulse Ox O2 Del Method 07/03/22 07:37 36.7 C 70 18 115/68 93 Room Air 07/03/22 03:46 36.8 C 80 20 111/73 96 Room Air 07/03/22 00:30 79 07/02/22 22:48 36.7 C 85 18 134/55 L 92 Room Air Laboratory Results 07/03/22 07:16 07/03/22 07:16
--- NOTE | 2022-07-03 14:34 | Hospitalist Progress Note ---
Date of Service July 03, 2022 Assessment & Plan (1) Acute hyponatremia: Plan 86-year-old male with PMH of CKD stage III, HLD, hypothyroidism presented to the ED 06/27/2022 with complaint of acute onset of nausea/vomiting/lethargy/dizziness/fatigue since few days [employer]. He was recently treated for viral URI as an outpatient, he continues to have cough which is mostly dry and has not been eating/drinking since 4 to 5 days [employer]. Patient was referred from the PCP office to ED because of dehydration. His last sodium worked on 06/09/2022 as an outpatient was sodium of 134. Has not had any seizures. Is being managed for the following: Severe hyponatremia/acute kidney injury Likely SIADH Admitting sodium of 117, patient was oriented and conversive at presentation. Status post NSS in the ED, also status post 3% saline infusion on 06/27. Status post 3% hypertonic saline 06/30 and 07/01 Admitting urine sodium of 214 and urine osmolality of 1069. Admitting EKG with sinus rhythm with first-degree AV block. Likely secondary to decreased appetite on the background of acute SIADH ?? from Viral URI. Urine Legionella negative, negative flu and COVID and RSV. Sodium improved to 135 today Plan; In view of his orthostatic hypotension; will hold off on additional Lasix. -- Continue on oral urea. Salt tablet 2 g twice daily added as per recommendation by nephrology. -- Arrangements made for urea as outpatient at [facility] pharmacy. Upper respiratory tract infection, viral: - Continue supportive care of cough with Hycodan cough syrup - Encourage incentive spirometry, flutter, mucinex -Leukocytosis noted today. Will obtain Pro-Johnathon and chest x-ray tomorrow AM. Likely vasovagal syncope: patient passed out 06/29 while urinating, RUTHY caught and pt didn't hit anywhere, CT Head was negative. Likely vasovagal, c/w telemetry, Fall precaution. CAD (coronary artery disease): -May continue baby aspirin -Follows with [facility] cardiology, Dr. Bernal as an outpatient: Single-vessel coronary arthrosclerosis of the left circumflex by cardiac cath in 2013 -Hyperlipidemia with a poor statin intolerance on low-dose therapy, can continue - EKG reviewed, RBBB noted, old, no cardiac symptoms upon admission Other chronic medical conditions: HLD/CKD/hypothyroidism --->> continue with/resume home meds as and when able. Last TSH was 7.90 Free T4 1.0, PCP last note from 06/12 noted to stay on the same dose and encouraged patient to take daily, question noncompliance? DVT prophylaxis: Teds, SCDs CODE STATUS: Full code Dispo: Possibly home depending on clinical course tomorrow. Discussed plan of care with daughter at bedside. Answered questions. Admission and Anticipated Discharge Date Admission Date: June 27, 2022 Subjective Patient seen and examined at bedside. Is comfortably lying in the bed; not in any distress. On ambulation; he was found to have orthostatic hypotension during physical therapy evaluation. Review of Systems Review of Systems: All systems reviewed & are unremarkable except as noted in Subjective Physical Exam Physical Exam: GENERAL: Alert and oriented x3. NAD, on RA. HEENT: No pallor, no icterus. Pupils equal, round and reactive to light. Oral mucosa moist. NECK: No JVD, no neck masses. HEART: S1 and S2 heard. Regular rate and rhythm. No murmur, no gallop. RESPIRATORY SYSTEM: Normal AP diameter. No accessory muscle use. No wheezing, b/l crackles improving ABDOMEN: Soft, bowel sounds present, nontender, no distention. CENTRAL NERVOUS SYSTEM: No facial droop. Speech is clear. Obeys simple commands. Moves extremities. EXTREMITIES: No edema, no erythema seen. Results & Data Results & Data ([facility]) Vital Signs (Past 12 Hours) Vital Signs Temp Pulse Resp BP Pulse Ox O2 Del Method 07/03/22 11:18 36.6 C 71 19 124/69 93 Room Air 07/03/22 07:37 36.7 C 70 18 115/68 93 Room Air 07/03/22 03:46 36.8 C 80 20 111/73 96 Room Air Laboratory Results Laboratory Results WBC 16.59 K/ul (4.8-10.8) H 07/03/22 07:16 RBC 4.32 M/uL (4.63-6.08) L 07/03/22 07:16 Hgb 12.6 g/dl (14.0-18.0) L 07/03/22 07:16 Hct 36.4 % (40.1-51.0) L 07/03/22 07:16 MCV 84.3 fL (80.0-100.0) 07/03/22 07:16 MCH 29.2 pg (25.0-34.0) 07/03/22 07:16 MCHC 34.6 g/dL (32.0-36.0) 07/03/22 07:16 RDW Std Deviation 41.8 fL (36.4-46.3) 07/03/22 07:16 RDW Coeff of Dc 13.4 % (11.5-14.5) 07/03/22 07:16 Plt Count 337 K/uL (130-400) 07/03/22 07:16 MPV 9.9 fL (9.4-12.4) 07/03/22 07:16 Immature Gran % (Auto) 0.6 % 06/27/22 14:32 Neut % (Auto) 86.4 % 06/27/22 14:32 Lymph % (Auto) 7.2 % 06/27/22 14:32 Obion % (Auto) 5.3 % 06/27/22 14:32 Eos % (Auto) 0.4 % 06/27/22 14:32 Baso % (Auto) 0.1 % 06/27/22 14:32 Neut # (Auto) 7.99 K/uL (1.4-6.5) H 06/27/22 14:32 Lymph # (Auto) 0.67 K/uL (1.2-3.4) L 06/27/22 14:32 Obion # (Auto) 0.49 K/uL (0.24-0.82) 06/27/22 14:32 Eos # (Auto) 0.04 K/uL (0-0.50) 06/27/22 14:32 Baso # (Auto) 0.01 K/uL (0-0.2) 06/27/22 14:32 Immature Gran # (Auto) 0.06 K/uL (0.00-0.02) H 06/27/22 14:32 Sodium 135 mmol/L (136-145) L 07/03/22 07:16 Potassium 3.6 mmol/L (3.5-5.1) 07/03/22 07:16 Chloride 94 mmol/L (98-107) L 07/03/22 07:16 Carbon Dioxide 32 mmol/L (21-32) 07/03/22 07:16 Anion Gap 9 (3-11) 07/03/22 07:16 BUN 92 mg/dl (6-23) H 07/03/22 07:16 Creatinine 1.40 mg/dl (0.6-1.4) 07/03/22 07:16 Est Cr Clr Drug Dosing 37.1 ml/min 07/03/22 07:16 Est GFR ( Amer) 53.1 ml/min 07/03/22 07:16 Est GFR (Non-Af Amer) 45.8 ml/min 07/03/22 07:16 BUN/Creatinine Ratio 65.7 (10-20) H 07/03/22 07:16 Glucose 126 mg/dl (70-99(Fasting)) H 07/03/22 07:16 Fasting Glucose 118 mg/dl (70-99) H 06/30/22 17:00 Osmolality 247 mOsm/kg (280-300) L 06/27/22 14:32 Lactate 1.0 mmol/L (0.4-2.0) 06/29/22 12:48 Calcium 9.9 mg/dl (8.5-10.1) 07/03/22 07:16 Phosphorus 3.8 mg/dl (2.5-4.9) 07/01/22 05:40 Magnesium 2.3 mg/dl (1.7-2.4) 07/03/22 07:16 Total Bilirubin 0.8 mg/dl (0.2-1.0) 06/29/22 12:48 AST 72 U/L (13-39) H 06/29/22 12:48 ALT 40 U/L (7-52) 06/29/22 12:48 Alkaline Phosphatase 53 U/L (34-104) 06/29/22 12:48 Troponin I High Sens 10.4 pg/ml (0-20) 06/29/22 12:48 Total Protein 6.8 gm/dl (6.0-8.3) 06/29/22 12:48 Albumin 3.8 gm/dl (3.4-5.0) 06/29/22 12:48 Globulin 3.0 gm/dl (2.5-4.0) 06/29/22 12:48 Albumin/Globulin Ratio 1.3 (0.9-2) 06/29/22 12:48 Urine Color Yellow 06/27/22 15:45 Urine Appearance Clear (Clear) 06/27/22 15:45 Urine pH 6.5 (4.5-7.5) 06/27/22 15:45 Ur Specific Odell 1.021 (1.000-1.030) 06/27/22 15:45 Urine Protein 1+ (Negative) H 06/27/22 15:45 Urine Glucose (UA) Negative (Negative) 06/27/22 15:45 Urine Ketones 2+ (Negative) H 06/27/22 15:45 Urine Blood Negative (Negative) 06/27/22 15:45 Urine Nitrite Negative (Negative) 06/27/22 15:45 Urine Bilirubin Negative (Negative) 06/27/22 15:45 Urine Urobilinogen Negative (Negative) 06/27/22 15:45 Ur Leukocyte Esterase Negative (Negative) 06/27/22 15:45 Urine WBC (Auto) 1-5 /hpf (0-5) 06/27/22 15:45 Urine RBC (Auto) 0-4 /hpf (0-4) 06/27/22 15:45 U Hyaline Cast (Auto) 0 /lpf (0-5) 06/27/22 15:45 U Epithel Cells (Auto) 10-20 /lpf (0-5) H 06/27/22 15:45 Urine Bacteria (Auto) Negative (Negative) 06/27/22 15:45 Urine Osmolality 386 mOsm/kg (500-800) L 06/29/22 02:55 Ur Random Creatinine 284.5 mg/dl 06/27/22 15:54 Ur Random Sodium 214 mmol/L 06/27/22 15:54 SARS-CoV-2 (PCR) NEGATIVE (Negative) 06/27/22 15:00 Influenza Type A (PCR) Negative (Neg) 06/27/22 15:00 Influenza Type B (PCR) Negative (Neg) 06/27/22 15:00 Urine Legionella Ag SEE NOTE 06/27/22 15:54 RSV (RT-PCR) Negative (Neg) 06/27/22 15:00 Impressions Chest X-Ray 06/27/22 14:25 TWO VIEW CHEST CLINICAL HISTORY: Illness. Cough. Vomiting. FINDINGS: PA and lateral chest radiographs are compared to study dated 07/10/2015 and correlated with chest CT dated 07/28/2013. The heart is top normal for projection noting atherosclerotic calcification of the thoracic aorta. Chronic interstitial thickening is similar to previous. There is bibasilar scarring/atelectasis. No airspace consolidation or pleural effusion is identified. There is no pneumothorax. The skeletal structures are osteopenic. The bony thorax appears intact. Spondylotic change is noted in the thoracic spine. IMPRESSION: No active disease in the chest. ACT 112: Negative or not required by law. Electronically signed by: Bandar Boss M.D. 06/27/2022 2:[address] 06/29/22 12:17 CT SCAN OF THE BRAIN WITHOUT IV CONTRAST CLINICAL HISTORY: Syncope. Dizziness. COMPARISON STUDY: No priors. TECHNIQUE: Unenhanced axial CT scan of the brain is performed from the vertex to the skull base. A dose lowering technique was utilized adhering to the principles of ALARA. CT DOSE: 691.05 mGy.cm FINDINGS: Brain parenchyma: There is age-related involutional change noting moderate subcortical and periventricular microangiopathic disease. There is no hemorrhage, mass effect, or evidence of acute territorial ischemia by CT criteria. 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 Elliott-white matter differentiation is preserved. No extra-axial fluid collection is seen. Ventricles, sulci, cisterns: Prominent secondary to involutional change. Intracranial vasculature: There is atherosclerotic calcification of the cavernous carotid and vertebral arteries. Calvarium: The skeletal structures are osteopenic. No depressed calvarial fracture is identified. Sinuses and mastoids: There is mild mucosal thickening within the maxillary antra and the ethmoid sinuses. There are trace mastoid effusion. Orbits: The bony orbits are grossly intact. IMPRESSION: There is no hemorrhage, mass effect, or evidence of acute territorial ischemia by CT criteria. ACT 112: Negative or not required by law. Electronically signed by: Bandar Boss M.D. 06/29/2022 12:43 PM
[2022-07-03] MEDS: SODIUM CHLORIDE 1 GM TABLET PO SCH (20:43)
[2022-07-03] MEDS ORDERED: SODIUM CHLORIDE 1 GM TABLET PO SCH (21:00)
[2022-07-04] MEDS: LEVOTHYROXINE SODIUM 50 MCG TABLET PO SCH (05:56)
[2022-07-04 06:00] LABS: Basophils # (auto) 0.05 K/uL (0-0.2); Basophils % (auto) 0.3 %; Eosinophils # (auto) 0.51 K/uL (0-0.50); Eosinophils % (auto) 3.4 %; Hematocrit (blood only) 36.3 % (40.1-51.0); Hemoglobin 12.5 g/dl (14.0-18.0); Immature Granulocytes # (auto) 0.25 K/uL (0.00-0.02); Immature Granulocytes % (auto) 1.7 %; Lymphocytes # (auto) 1.33 K/uL (1.2-3.4); Mean Corpuscular Hemoglobin 29.1 pg (25.0-34.0); Mean Corpuscular Hgb Conc 34.4 g/dL (32.0-36.0); Mean Corpuscular Volume 84.4 fL (80.0-100.0); Mean Platelet Volume 10.1 fL (9.4-12.4); Monocytes # (auto) 1.16 K/uL (0.24-0.82); Monocytes % (auto) 7.8 %; Neutrophils # (auto) 11.52 K/uL (1.4-6.5); Neutrophils % (auto) 77.8 %; Platelet Count 320 K/uL (130-400); RDW Coefficient of Variation 13.6 % (11.5-14.5); RDW Standard Deviation 42.2 fL (36.4-46.3); White Blood Count 14.82 K/ul (4.8-10.8)
[2022-07-04 06:26] LABS: Calcium 9.9 mg/dl (8.5-10.1); Creatinine Clr Calc Pharmacy 41.6 ml/min; Est GFR (African American) 60.9 ml/min; Est GFR (Non-African American) 52.5 ml/min; Potassium 3.6 mmol/L (3.5-5.1)
[2022-07-04] MEDS: UREA (UREA-NA) 15 GM PACK PO SCH (08:17)
[2022-07-04] MEDS: guaiFENesin 600 MG TABCR PO SCH (08:17)
[2022-07-04] MEDS: ROSUVASTATIN CALCIUM 5 MG TAB PO SCH (08:17)
[2022-07-04] MEDS: PANTOprazole 40 MG TAB PO SCH (08:17)
[2022-07-04] MEDS: BENZONATATE 100 MG CAPSULE PO SCH ×2 (08:18→15:27)
[2022-07-04] MEDS: SODIUM CHLORIDE 1 GM TABLET PO SCH (08:18)
[2022-07-04] MEDS: EZETIMIBE 10 MG TABLET PO SCH (08:18)
[2022-07-04] MEDS: ASPIRIN 81 MG ECTAB PO SCH (08:18)
--- NOTE | 2022-07-04 09:40 | XRay Report ---
SINGLE VIEW CHEST CLINICAL HISTORY: Cough. FINDINGS: An AP, portable, upright chest radiograph is compared to study dated 06/27/2022. Correlatio n is made with chest CT dated 07/28/2013. The heart is normal in size noting atherosclerotic calcific ation of the thoracic aorta. Chronic interstitial thickening is similar to previous. Scarring/atelect asis is noted at the lung bases. The lungs and pleural spaces are otherwise clear. No pneumothorax is seen. The skeletal structures are osteopenic. The bony thorax is grossly intact. Arthritic change an d calcific tendinopathy is seen in the shoulders. IMPRESSION: No active disease in the chest. ACT 112: Negative or not required by law. Electronically signed by: Bandar Boss M.D. 07/04/2022 9:38 AM
--- NOTE | 2022-07-04 14:53 | Discharge Summary ---
Date of Service July 04, 2022 Admission HPI Per Admitting Provider This is a 86-year-old M with PMHx of CKD stage III, HLD, hypothyroidism, who presented to the ER with acute onset of nausea, vomiting, lethargy, dizziness, fatigue. He was recently being treated as an outpatient for a viral upper respiratory illness for the past 4 to 5 days, with acute worsening of cough, nausea, and vomiting and due to dehydration his and daughter brought him to see PCP today. They referred him to the ER because of dehydration. Recently he had outpatient blood work completed which showed sodium of 134 on 06/09/22. In the ER upon admission sodium level is 117. He has not had any seizures or displaying other neurological manifestations at this time per the daughter, Radha who is present at bedside. Pt reports that in general he does not feel himself, and is tired. Patient also complains of having difficulty walking because he feels unbalanced. Typically he does not have any issues with this nor uses any assistive devices for ambulation. He denies any recent falls. One of his biggest complaints is that he has not had any rest or sleep for the past 2 nights due to cough. When questioned about outpatient Remeron, he tells me he has not needed a sleeping agent in months and is no longer taking this. He reports that his coughing has overall been dry, but today started bringing up mucus after having a nebulizer treatment in the ER. He is able to participate in conversation, oriented x3, and answer all my questions without difficulty. Patient was unable to take his medications this morning due to nausea/vomiting. Respiratory swab was COVID, influenza, RSV negative. Admission Exam Per Admitting Provider General: awake, alert, no apparent distress, + appears fatigued Head: Normocephalic, atraumatic ENT: PERRL, EOMI, no pharyngeal exudate,+ mucous membranes are dry Chest: On room air, + cough which clears airways to resolve rales, no wheeze, no crackles or other adventitious breath sounds Cardiac: Regular rate and rhythm, no murmur, no JVD, normal peripheral pulses, good capillary refill Abdominal: NABS x 4 quadrants, soft, nondistended, nontender to palpation, no rebound or guarding Extremities: Normal inspection, no peripheral edema or erythema, calfs nontender to palpation Psych: Normal mood and affect Neuro: AAO x 3, participates in conversation without difficulty, answers questions appropriately, strength intact bilaterally and rated 5/5, no motor deficits, speech is clear, no peripheral sensory deficit Principal Diagnosis 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 NAD, on RA. HEENT: No pallor, no icterus. Pupils equal, round and reactive to light. Oral mucosa moist. NECK: No JVD, no neck masses. HEART: S1 and S2 heard. Regular rate and rhythm. No murmur, no gallop. RESPIRATORY SYSTEM: Normal AP diameter. No accessory muscle use. No wheezing, b/l crackles improving ABDOMEN: Soft, bowel sounds present, nontender, no distention. CENTRAL NERVOUS SYSTEM: No facial droop. Speech is clear. Obeys simple commands. Moves extremities. EXTREMITIES: No edema, no erythema seen. Discharge Data Allergies Allergy/AdvReac Type Severity Reaction Status Date / Time Sulfa (Sulfonamide Allergy Unknown Unknown Verified 06/27/22 16:19 Antibiotics) Consultations 06/27/22 16:18 ED Decision to Admit Stat 06/27/22 17:27 Consult Nephrology Routine Ordered Studies 06/29/22 12:17 CT head/brain wo con Stat Hospital Course (1) Acute hyponatremia: Plan 86-year-old male with PMH of CKD stage III, HLD, hypothyroidism presented to the ED 06/27/2022 with complaint of acute onset of nausea/vomiting/lethargy/dizziness/fatigue since few days [employer]. He was recently treated for viral URI as an outpatient, he continues to have cough which is mostly dry and has not been eating/drinking since 4 to 5 days [employer]. Patient was referred from the PCP office to ED because of dehydration. His last sodium worked on 06/09/2022 as an outpatient was sodium of 134. On presentation, he was found to have serum sodium of 117. Patient was admitted to the telemetry floor and nephrology was consulted. Urine electrolytes and osmolarity suggested SIADH. Patient was given 3% hypertonic saline multiple times to correct his sodium. He was also started on IV Lasix as well as oral urea. Patient's sodium gradually improved and was 137 on the day of the discharge. Patient was recommended to be on oral urea 15 g twice daily as per recommendation by the nephrology. He has a follow-up set up as outpatient on 07/15 with nephrology as outpatient. During the hospitalization, patient was found to have orthostatic hypotension likely secondary to volume depletion as he was on Lasix. The orthostatic hypotension improved at discharge after Lasix was held. Patient was treated with supportive care with cough syrup for viral URTI symptoms. Chest x- ray and Pro-Johnathon done during the hospitalization were negative. PT OT had recommended patient to go to subacute rehab. Extensive family discussion was done with his daughter and his son-in-law who is a physical therapist. They feel comfortable with patient going home and assured that they will be providing 24/7 monitoring at home. Total Time Total Time Spent Total Time Spent (In Minutes): 40 Total Time Includes: Examination of the Patient, Discharge Planning, Medication Reconciliation, Communication With Other Providers and Other Discharge Plan Discharge Items Patient Disposition: Home - Self-Care Reason For Visit: HYPONATREMIA Discharge Diagnosis: Hyponatremia secondary to SIADH Viral URTI Condition on Discharge: Fair Activity: Resume your previous activity Non-emergency contact: Primary Care Provider Call non-emergency contact if: you have any medication questions and your symptoms worsen Follow-up/Referrals: Cal Isabel MD [Surgeon] - (Date & Time 07/15/2022 9:00 AM Provider Cal Isabel MD Department Nephrology, [facility] ) Chester Persaud DO [Primary Care Provider] - (Date & Time 07/09/2022 11:00 AM Provider Tamiko Muniz MD Department Family Practice [facility] ) Addtl Attending Provider Instructions: You were admitted to the hospital with viral URTI and low sodium. Your sodium today is 137 which is within normal limit. You are prescribed urea. Please take 15 g twice daily till you see the community representative on 07/15. You also have a follow-up appointment with your primary care doctor on 07/09. Please continue to take all your medication as prescribed before. Please call the [facility] at [facility] after 2PM (07/04) to ensure the arrival of the UREA. The cost for this medication is $138. The [facility] is located at the [facility], [address] [place] [id number], on the second level. Please call . Pending Studies at Discharge: No Stand-Alone Forms: My [facility], Smoking Cessation Medications and DC Order Prescriptions: New urea 15 gram powder in packet 1 packet PO BID 12 Days Qty: 24 0RF Continued aspirin 81 mg Tablet,Delayed Release (Dr/Ec) 81 mg PO DAILY pantoprazole 20 mg tablet,delayed release (DR/EC) 20 mg PO DAILY levothyroxine 50 mcg tablet 50 mcg PO DAILYBB clotrimazole-betamethasone 1-0.05 % Cream 1 applic TOPICAL BID PRN (Reason: SORE ON TOE NEEDED) nitroglycerin [Nitrostat] 0.4 mg Tablet, Sublingual 0.4 mg sublingual DIRECTED PRN (Reason: Chest Pain) polyethylene glycol 3350 [Miralax] 17 gram/dose Powder 17 g PO DAILY PRN (Reason: Constipation) ezetimibe [Zetia] 10 mg Tablet 10 mg PO DAILY rosuvastatin 5 mg tablet 5 mg PO [id number] Rx Instructions: MON, THU, & THU. Discharge Orders: Discharge Order (Routine); Ordered 07/04/22 Ordered By: Rito Whittington Admission Data Admit Date/Time: 06/27/22 17:08 Attending Provider: Rito Whittington Admit Provider: Delmi Pennington Primary Care Provider: Chester Persaud Other Providers: Delmi Pennington ; Cal Isabel Other Interventions: Discharge Summary Assessment (RN) Last Done: 07/04/22 13:12
== END 2022-07-04 18:45 | disposition home or self-care (01) | DRG 644 ==
LOC: ED 14:10 → 4W 17:08 → SUATTDRO 17:08 → 4W 17:55